=== PATIENT | female | born 1970 | race Caucasian/White ===

== ENCOUNTER 2016-11-15 17:42 | Emergency (ER) | payer MEDICARE, MEDICAID ==
--- NOTE | 2016-11-15 18:47 | EDM.PDOC ---
ED HPI Trauma - General Chief Complaint: Lower Extremity Injury/Pain Stated Complaint: RT ANKLE INJURY Time Seen by Provider: 11/15/16 17:50 Source: Reports: Patient History Limitations: Reports: No limitations - History of Present Illness INITIAL COMMENTS - FREE TEXT/NARRATIVE: c/o R ankle pain pt has several szs per week, from supervised setting, on 3 anticonvulsants, takes meds regular had seizure at home, tried to get up right away and was not completely steady on her feet, she fell and landed on her R ankle, staff member reported hearing a snap Allergies/ADRs: Allergies phenobarbital Allergy (Verified 11/15/16 17:44) he phenytoin sodium [From Dilantin] Allergy (Verified 11/15/16 17:44) Headache phenytoin sodium extended [From Dilantin] Allergy (Verified 11/15/16 17:44) Headache Home Medications: Ambulatory Orders Divalproex Sodium 250 mg PO DAILY 05/02/13 [Confirmed 11/15/16] Divalproex Sodium [Depakote] 500 mg PO BIDM 05/02/13 [Confirmed 11/15/16] Multivits w-Iron,Hematinic [Complete] 1 tab PO DAILY 05/02/13 [Confirmed ] lamoTRIgine [Lamotrigine] 100 mg PO BID 05/02/13 [Confirmed 11/15/16] levETIRAcetam [Levetiracetam] 2,000 mg PO BID 05/02/13 [Confirmed 11/15/16] Cholecalciferol (Vitamin D3) [Vitamin D] 1,000 unit PO DAILY 07/10/13 [ Confirmed 11/15/16] medroxyPROGESTERone [Depo-Provera] 150 mg IM ASDIRECTED 07/10/13 [Confirmed ] Diazepam [Diastat Rectal Gel] 1 each RC ASDIRECTED PRN 08/28/15 [Confirmed 11/15] Sertraline HCl [Sertraline HCl] 75 mg PO DAILY 08/28/15 [Confirmed 11/15/16] Past Medical History - Past Health History Medical/Surgical History: Denies Medical/Surgical History Neurological History: Reports: Seizure Other Neuro History: history of seizures Psychiatric History: Reports: Anxiety, Bipolar, Depression Social & Family History - Tobacco Use Smoking Status *Q: Never Smoker - Caffeine Use Caffeine Use: Reports: None - Alcohol Use Days Per Week of Alcohol Use: 0 - Recreational Drug Use Recreational Drug Use: No - Living Situation & Occupation Living situation: Reports: single Occupation: disabled (lives in [facility]) Review of Systems - Review of Systems Review Of Systems: See Below Constitutional: Reports: no symptoms Eyes: Reports: no symptoms Ears: Reports: no symptoms Nose: Reports: no symptoms Mouth/Throat: Reports: no symptoms Respiratory: Reports: No Symptoms Cardiovascular: Reports: no symptoms GI/Abdominal: Reports: No symptoms Genitourinary: Reports: no symptoms Musculoskeletal: Reports: joint pain Skin: Reports: no symptoms Neurological: Reports: No Symptoms Psychiatric: Reports: no symptoms Trauma Exam - Physical Exam Exam: See Below Exam Limited By: No limitations General Appearance: Reports: alert, WD/WN, no apparent distress Head: Reports: atraumatic, normocephalic Nose: Reports: normal inspection, normal mucousa, no blood Throat/Mouth: Reports: Normal voice, No airway compromise Neck: Reports: non-tender, full range of motion, normal alignment, normal inspection Respiratory Exam: Reports: no respiratory distress Cardiovascular: Reports: regular rate, rhythm Extremities: Reports: other (no ecchymosis, no visible swell at R ankle, mild tender at distal malleoli b/l on R) Skin: Reports: Normal color, Warm/dry Course - Vital Signs Last Recorded V/S: Last Vital Signs Temp 36.8 C 11/15/16 17:45 Pulse 95 11/15/16 17:45 Resp 20 11/15/16 17:45 BP 152/85 H 11/15/16 17:45 Pulse Ox 98 11/15/16 17:45 - Orders/Labs/Meds Orders: Active Orders 24 hr Category Date Time Status Ankle Min 3V Rt [CR] Stat Exams 11/15/16 17:49 Taken - Re-Assessments/Exams Free Text/Narrative Re-Assessment/Exam: 11/15/16 18:41 XR R ankle shows bimalleolar fx with minimal displacement, little to no STS on exam, short leg splint applied with stockinet, webroll, 4" fiberglass and 4" Ruperto x 2, tolerated well Departure - Departure Time of Disposition: 18:42 Disposition: Home, Self-Care 01 Condition: good Clinical Impression: Bimalleolar fracture of right ankle Instructions: Cast or Splint Care, [id number], Ankle Fracture, [id number] Referrals: Jonathan Ayers MD [Primary Care Provider] - Forms: ED Department Discharge Additional Instructions: Continue your regular meds. For pain, as needed, take acetaminophen 325 mg 2 tabs 4 times a day. Keep splint clean and dry. See Dr Appiah from orthopedics in 2 days for further evaluation. No weight bearing on right leg. Return to ED if you feel worse. Call your Physician or Return to Emergency Department if: * Your condition worsens in any way. * You develop fever greater than 100.4. * You have vomiting that does not stop with medications. * You have pain that is not controlled with medications. - My Orders Last 24 Hours: My Active Orders 11/15/16 17:49 Ankle Min 3V Rt [CR] Stat - Assessment/Plan Last 24 Hours: My Active Orders 11/15/16 17:49 Ankle Min 3V Rt [CR] Stat
[2016-11-15 18:54] VITALS: BP 135/87
--- NOTE | 2016-11-17 10:45 | CR ---
INDICATION: Had a seizure and fell on ankle. RIGHT ANKLE: Three views of the right ankle revealed a comminuted fracture of the distal shaft extending into the metaphysis of the fibula with minimal lateral offset of the distal fracture fragment - adequate position and alignment. There does appear to be some narrowing of the lateral ankle mortise , horizontal portion. There is also a transverse fracture through the medial malleolus, which is in adequate position and alignment, and a posterior malleolar fracture fragment that is a hairline fracture and does not appear to include the joint surface. IMPRESSION: Trimalleolar fracture, adequate position and alignment. There is some narrowing of the lateral ankle mortise, which may be arthritic in nature or developmental. MTDD
== END 2016-11-15 18:55 | disposition home or self-care (01) ==
LOC: FB.ED 17:42
DX: S82.841A Displaced bimalleolar fracture of right lower leg, initial encounter for closed fracture (principal); F41.9 Anxiety disorder, unspecified; F32.9 Major depressive disorder, single episode, unspecified; Z88.8 Allergy status to other drugs, medicaments and biological substances; W19.XXXA Unspecified fall, initial encounter
CPT/HCPCS: 29515; 73610-RT; 99283; 99284

== ENCOUNTER 2016-11-18 08:40 | Day surgery (SDC) | payer MEDICARE, MEDICAID ==
[~2016-11-18 08:40] MED LIST: Lactated Ringers 1,000 ML IV SCH
[2016-11-18] MEDS ORDERED: Midazolam Oral Soln 10 MG/5 ML UD Cup PO ONE ×2 (09:12)
[2016-11-18] MEDS ORDERED: ceFAZolin 2 GM in Sodium Chloride 0.9% 100 ML IV ONE (09:30)
[2016-11-18] MEDS ORDERED: Succinylcholine/Normal Saline 200 MG/10 ML Syringe IV ONE (10:00)
[2016-11-18] MEDS ORDERED: Ondansetron 4 MG/2 ML SDV IVPUSH ONE (10:00)
[2016-11-18] MEDS ORDERED: Dexamethasone 4 MG/ML 5 ML MDV IVPUSH ONE (10:00)
[2016-11-18] MEDS ORDERED: Rocuronium 50 MG/5 ML Vial IV ONE (10:00)
[2016-11-18] MEDS ORDERED: fentaNYL 100 MCG/2 ML SDV IV ONE (10:00)
[2016-11-18] MEDS ORDERED: Midazolam 1 MG/ML 2 ML SDV IV ONE (10:00)
[2016-11-18] MEDS ORDERED: Ketorolac 30 MG/ML SDV IVPUSH ONE (10:00)
[2016-11-18] MEDS ORDERED: Lactated Ringers 1,000 ML IV ONE (10:00)
[2016-11-18] MEDS ORDERED: Propofol 200 MG/20 ML SDV IV ONE (10:00)
[2016-11-18] MEDS ORDERED: Acetaminophen/HYDROcodone 325-5 MG Tab PO PRN (13:29)
[2016-11-18] MEDS ORDERED: Lactated Ringers 1,000 ML IV SCH (13:30)
[2016-11-18 14:31] VITALS: BP 160/98
--- NOTE | 2016-11-18 18:09 | OR ---
DATE OF OPERATION: 11/18/2016 SURGEON: Aleksandar Appiah MD PREOPERATIVE DIAGNOSIS: Unstable bimalleolar fracture, closed, left ankle. POSTOPERATIVE DIAGNOSIS: Unstable bimalleolar fracture, closed, left ankle. PROCEDURE PERFORMED: Open reduction and internal fixation of left ankle bi- malleolar fracture. OPERATIVE NOTE: The patient was taken to the operating room after 2 g of Ancef were given IV. She was then carefully positioned in supine position onto the operative table. General anesthetic was then administered. Tourniquet was then placed on the left thigh near the inguinal area. The left lower extremity was then elevated and tourniquet inflated to 250 mmHg pressure after sterile ChloraPrep had been performed from the inferior margin of the tourniquet to the tip of the toes. The patient had a skin incision approximately 6 inches in length over the lateral aspect of the right ankle. Skin and subcutaneous tissues were carefully dissected through and hemostasis was achieved utilizing electrocautery. The patient's fracture was brought into view and the fracture debrided with a small rongeur. Once the hematoma had been removed, the fracture was then stabilized with an 8 hole semitubular plate. Care was taken to have 2 screws distal to the fracture line and 2 proximally. Portable C-arm was brought in and showed ankle mortise to be reduced and the mortise view was also taken that showed good maintenance of the mortise. We did not use a mortise stabilizing screw because there was no motion of the anterior talofibular ligament. The lateral incision was then packed and then we made about a 3 inch incision anterior and inferior to the medial malleolus. Skin and subcutaneous tissues were carefully dissected through. The medial malleolus was identified and the periosteum was intact. With the use of a 4.0 cannulated screw, we then stabilized the fracture. In trying to put another screw across the fracture site for stabilization, I could not purchase the threads, therefore we went with a 6.5. Again, I felt it was very important to make sure this fracture healed as I was not sure the patient will be able to comply with postop recommendations and did not want a nonunion or displacement of the medial malleolus to occur. Thorough irrigation was then carried out, tourniquet deflated, and hemostasis achieved utilizing electrocautery and 0 Vicryl for the deep subcutaneous tissue, 2-0 for the superficial subcutaneous tissue, and jules were utilized for closure of the skin. Skin cleansed and dried and appropriate dressings were applied; Xeroform, 4x4s, 4-inch tubular gauze, soft roll, and then light Ruperto. The patient tolerated the procedure well. No complications were encountered. Estimated blood loss was less than 30 mL. /[id number] DINA/BEATRIZ YOUSSEF
[2016-11-18] MEDS ORDERED: Aspirin 325 MG Tab.EC PO SCH (21:00)
--- NOTE | 2016-11-19 15:10 | CR ---
INDICATION: ORIF right ankle. C-ARM FLUOROSCOPY IN O.R.: Fluoroscopy was utilized in the operating suite for open reduction and internal fixation of a bimalleolar unstable ankle fracture. Total time of usage was approximately 1.25 minutes. MTDD
== END 2016-11-18 14:20 ==
LOC: FB.SDS 08:40
PROVIDERS: ATTEND Orthopaedic Surgery
DX: S82.842A Displaced bimalleolar fracture of left lower leg, initial encounter for closed fracture (principal); F32.9 Major depressive disorder, single episode, unspecified; Z88.8 Allergy status to other drugs, medicaments and biological substances; Z79.899 Other long term (current) drug therapy; Z78.9 Other specified health status
CPT/HCPCS: 01462; 27814; 76000; A9270; J0690; J1100; J1885; J2250; J2405; J2704; J3010; J7030; J7120; C1713; C1776

== ENCOUNTER 2020-10-04 07:47 | Day surgery (SDC) | payer MEDICARE, MEDICAID ==
[~2020-10-04 07:47] MED LIST changes: -Lactated Ringers 1,000 ML IV SCH; +Sodium Chloride 0.9% 10 ML Syringe FLUSH PRN
[2020-10-04] MEDS ORDERED: Lidocaine 2% 100 MG/5 ML Syringe IVPUSH ONE (07:48)
[2020-10-04] MEDS ORDERED: Midazolam 1 MG/ML 2 ML SDV IV ONE (07:48)
[2020-10-04] MEDS ORDERED: Propofol 200 MG/20 ML SDV IV ONE (07:48)
[2020-10-04] MEDS: Lactated Ringers 1,000 ML IV SCH (08:08)
--- NOTE | 2020-10-04 08:55 | PCM.SN.2 ---
- Free Text/Narrative Note: Pt examined and chart reviewed. Their is no change to her condition. She did have issues with the prep and only took in 12 oz with one bowel movement. We will proceed with an EGD only today. We have talked to her sister about the risks of the procedure which include bleeding, infection, perforation and have received verbal permission to proceed. This was witnessed by the nursing staff.
--- NOTE | 2020-10-04 09:28 | PCM.OPNOTE ---
- General Post-Op/Procedure Note Date of Surgery/Procedure: 10/04/20 Operative Procedure(s): egd with bx Findings: gastroduodenitis Pre Op Diagnosis: abd pain nausea and vomiting with wt loss Post-Op Diagnosis: gastroduodenitis Anesthesia Technique: PARKER Primary Surgeon: Pedrito Corona Anesthesia Provider: Sirena Ferrari Pathology: stomach and duodenum Complications: None Condition: Good Free Text/Narrative:: see dictation #[id number]
[2020-10-04] MEDS: Pantoprazole 40 MG Vial IVPUSH ONE (09:42)
[2020-10-04 10:25] VITALS: BP 132/78; PULSE 77
--- NOTE | 2020-10-04 13:13 | OR ---
DATE OF OPERATION: 10/04/2020 SURGEON: Pedrito Corona MD PROCEDURE PERFORMED: EGD with cold forceps biopsy. PREOPERATIVE DIAGNOSIS: History of weight loss, epigastric abdominal pain, nausea, and vomiting. POSTOPERATIVE DIAGNOSIS: Gastric duodenitis. INDICATIONS FOR PROCEDURE: This is a 50-year-old white female who is a resident at a local senior living. She has some developmental issues as well as a history of seizures. Apparently, she had been noted by staff to have complaints of abdominal discomfort, nausea, and vomiting. She has had a poor p.o. intake as a result as well as weight loss. In addition, she has also had some diarrhea. She was initially planned to have an upper and lower endoscopy, but her p.o. prep did not go well. She presents now for an EGD. DESCRIPTION OF PROCEDURE: After an excellent IV sedation was administered, the bite block was inserted. The flexible endoscope was passed without difficulty down the patient's esophagus into the stomach. Stomach was insufflated. Scope was passed through the pylorus, second portion of the duodenum, and slowly withdrawn. The following findings were noted. Duodenum, especially in the first portion duodenitis was noted. Photos and biopsies were taken. Stomach demonstrated diffuse gastritis along the entire organ. Photos and multiple biopsies were taken and submitted in one container. GE junction measured approximately 35 cm, which appeared to be appropriate for patient of this height, and the esophagus itself was unremarkable. Stomach was deflated. Scope was removed. Patient tolerated the procedure well. Results will be sent by letter. Further workup on the basis of these results and her response to a change in medication. It should be noted that her sister who is her guardian was also informed of the results at the end of the procedure. /[id number] /MODL
== END 2020-10-04 10:00 | disposition home or self-care (01) ==
LOC: FB.SDS 07:47
PROVIDERS: ATTEND Surgery
DX: K29.80 Duodenitis without bleeding (principal); K29.90 Gastroduodenitis, unspecified, without bleeding; Z79.899 Other long term (current) drug therapy; Z88.8 Allergy status to other drugs, medicaments and biological substances
CPT/HCPCS: 00731-QZ; 88305; 88342; C9113; J2250; J2704; J7120

== ENCOUNTER 2021-03-02 12:01 | Emergency (ER) | payer MEDICARE, MEDICAID ==
[2021-03-02 12:41] VITALS: BP 119/71; PULSE 103
--- NOTE | 2021-03-02 12:53 | EDM.PDOC ---
ED HPI GENERAL MEDICAL PROBLEM - General Chief Complaint: General Stated Complaint: IRRATIC BEHAVIOR Time Seen by Provider: 03/02/21 12:08 Source of Information: Reports: Patient, Family History Limitations: Reports: No Limitations - History of Present Illness INITIAL COMMENTS - FREE TEXT/NARRATIVE: c/o dec'd alertness from [facility], weighted 204 lb 1y ago, weights 117 lb today, cause of wt loss unknown per director of [facility] who is pt pt reported to have slept okay, does not walk, transferred to w/c, drank juice and took meds for bfast but did not eat solid food had trouble remembering names of staff in mid morning and director was called, could name director at [facility], nor does so here did eat cheeseburger for lunch and was able to tell me this, however she would close her eyes and drift off to sleep with food in her mouth has had COVID vax, not had COVID illness PMH: CVA, sxs, dev delay SH: 2 sisters live in [place], last saw them over 2y ago has 3-4 szs/wk, partial complex, will jerk RUE/RLE but continue to talk, will yell "I'm okay", sometimes drops head, sometimes become withdrawn. Last szs 3d ago, last 27 seconds, not given prn meds for szs, has order for diazepam [place] prn but has not used in many months sucralfate was stopped 1m ago, saw PCP Dr Carvalho (? sp) in [facility] yesterday for routine apt to f/u being off of sucralfate (per director), no change in meds yesterday, no labs yesterday labs have been unremarkable here altho no recent labs when pt woke up today she was joking about Thursday being her bday, seemed more alert than now, director thinks her alertness has declined this morning, director called by staff at 10a to say pt was not acting herself, director conersed with pt via Zoom and agreed with staff, decied to bring pt here no f/c/d, no n/v, no pain c/o, no sob pt has initial apt with rheum on 03/07 to evaluate pt for "inflammation" altho pt has not had rheum problems in past, apparently part of work up for wt loss over past yr - Related Data Allergies Allergy/AdvReac Type Severity Reaction Status Date / Time phenobarbital Allergy he Verified 10/04/20 08:37 phenytoin sodium Allergy Headache Verified 10/04/20 08:37 [From Dilantin] phenytoin sodium extended Allergy Headache Verified 10/04/20 08:37 [From Dilantin] Home Meds: Home Meds Divalproex Sodium [Depakote] 750 mg PO BID 05/02/13 [History] Multivits w-Iron,Hematinic [Complete] 1 tab PO DAILY 05/02/13 [History] lamoTRIgine [Lamotrigine] 100 mg PO BID 05/02/13 [History] levETIRAcetam [Levetiracetam] 2,000 mg PO BID 05/02/13 [History] Cholecalciferol (Vitamin D3) [Vitamin D3] 1,000 unit PO DAILY 07/10/13 [History] Sertraline HCl 25 mg PO DAILY 08/28/15 [History] diazePAM [Diastat Rectal Gel] 1 each RC ASDIRECTED PRN 08/28/15 [History] Mirtazapine [Remeron] 15 mg PO BEDTIME 11/18/16 [History] Calcitrate 1 tab PO BIDMEALS 03/17/18 [History] L.acidoph,Paracasei, B.lactis [Probiotic] 1 each PO DAILY 03/17/18 [History] Cannabidiol (Cbd) Extract [Cannabis (Medical)] 1 cap PO BID PRN 10/03/20 [History] Ferrous Sulfate 324 mg PO BID 10/03/20 [History] Sertraline [Zoloft] 50 mg PO DAILY 10/03/20 [History] polyethylene glycoL 3350 [Gavilax] 17 gm PO DAILY 10/03/20 [History] Amoxicillin/Potassium Clav [Augmentin 500-125 Tablet] 1 each PO BID #20 tablet 03/02/21 [Rx] Fluticasone Propionate 16 gm NS ASDIRECTED #1 bottle 03/02/21 [Rx] Past Medical History - Past Health History Medical/Surgical History: Denies Medical/Surgical History HEENT History: Reports: None Cardiovascular History: Reports: None Respiratory History: Reports: None Gastrointestinal History: Reports: None Genitourinary History: Reports: None DECK SCALER History: Reports: None Musculoskeletal History: Reports: Fracture Neurological History: Reports: Seizure Other Neuro History: history of seizures Psychiatric History: Reports: Aggressive/Hostile Behaviors, Anxiety, Bipolar, Depression, Developmental Delay, Other (See Below) Other Psychiatric History: mild intellectual disability Endocrine/Metabolic History: Reports: None Hematologic History: Reports: Anemia Immunologic History: Reports: None Oncologic (Cancer) History: Reports: None Dermatologic History: Reports: None - Infectious Disease History Infectious Disease History: Reports: Other (See Below) Other Infectious Disease History: UNABLE TO OBTAIN. - Past Surgical History Head Surgeries/Procedures: Reports: None HEENT Surgical History: Reports: None Cardiovascular Surgical History: Reports: None Respiratory Surgical History: Reports: None GI Surgical History: Reports: None Female Surgical History: Reports: None Endocrine Surgical History: Reports: None Neurological Surgical History: Reports: None Oncologic Surgical History: Reports: None Social & Family History - Family History Family Medical History: No Pertinent Family History - Caffeine Use Caffeine Use: Reports: Coffee - Living Situation & Occupation Living situation: Reports: Single Occupation: Disabled ED ROS GENERAL - Review of Systems Review Of Systems: See Below Constitutional: Reports: Malaise, Decreased Appetite. Denies: Fever, Chills, Diaphoresis HEENT: Reports: No Symptoms Respiratory: Reports: No Symptoms. Denies: Cough Cardiovascular: Reports: No Symptoms. Denies: Chest Pain Endocrine: Reports: No Symptoms GI/Abdominal: Reports: No Symptoms. Denies: Abdominal Pain, Constipation, Diarrhea, Nausea, Vomiting : Reports: No Symptoms Musculoskeletal: Reports: No Symptoms Skin: Reports: No Symptoms Neurological: Reports: Other (not remembering names). Denies: Headache, Numbness, Paresthesia, Trouble Speaking, Change in Speech Psychiatric: Reports: No Symptoms Hematologic/Lymphatic: Reports: No Symptoms Immunologic: Reports: No Symptoms ED EXAM, GENERAL - Physical Exam Exam: See Below Free Text/Narrative:: wearing helmet as she always does General Appearance: Alert, Other (tells me her name, knows she is in hospital, tells me she had a hamburger for lunch, opens mouth on command, makes eye contact, talks complete sentences without dysarthria) Eye Exam: Bilateral Eye: EOMI, PERRL, Other (follows finger when asked to do so, conjugate gaze) Ears: Hearing Grossly Normal Nose: Normal Inspection Throat/Mouth: Normal Inspection, Normal Lips, Normal Oropharynx, Normal Voice, No Airway Compromise, Other (very poor dentition, multiple filled caries, calculus at base of teeth) Head: Atraumatic, Normocephalic Neck: Normal Inspection, Supple, Non-Tender, Full Range of Motion. No: Lymphadenopathy (R), Lymphadenopathy (L) Respiratory/Chest: No Respiratory Distress, Lungs Clear, Normal Breath Sounds, No Accessory Muscle Use, Chest Non-Tender Cardiovascular: Regular Rate, Rhythm, No Edema, No Murmur GI/Abdominal: Normal Bowel Sounds, Soft, Non-Tender, No Distention Back Exam: Normal Inspection, Full Range of Motion Extremities: Other (marked dec'd turgor UE c/w loss of wt, no true tenting, appears dehyrated, minimal edema of feet/ankles/pretib c/w nonambulatory status) Neurological: Alert, Other (moves all ext x 4, resists plantar flex of ankles, squeezes finger b/l altho manager fine is weak b/l, withdraws all ext symmetrically) Psychiatric: Normal Affect, Normal Mood Skin Exam: Warm, Dry, Intact, Normal Color, No Rash Lymphatic: No Adenopathy #1 Interpretation EKG Date: 03/02/21 Time: 12:02 Rhythm: NSR Rate (Beats/Min): 99 [place]: Normal P-Wave: Present QRS: Normal ST-T: Normal QT: Normal Comparison: NA - No Prior EKG EKG Interpretation Comments: baseline motion artifact, no comparison, no acute/ischemic changes, ST wnl Course - Vital Signs Last Recorded V/S: Last Vital Signs Temp 37.2 C 03/02/21 12:02 Pulse 103 H 03/02/21 12:02 Resp 20 03/02/21 12:02 BP 119/71 03/02/21 12:02 Pulse Ox 99 03/02/21 12:02 - Orders/Labs/Meds Orders: Active Orders 24 hr Category Date Time Status Chest 1V Frontal [CR] Stat Exams 03/02/21 13:15 Ordered Head wo Cont [CT] Stat Exams 03/02/21 13:15 Ordered CULTURE URINE [RM] Stat Lab 03/02/21 13:31 Ordered EKG 12 Lead [EK] Routine Ther 03/02/21 12:44 Ordered Labs: Laboratory Tests 03/02/21 03/02/21 03/02/21 Range/Units 13:00 13:05 13:05 WBC 6.1 (3.0-10.3) x10-3/uL RBC 3.53 L (3.60-5.20) x10(6)uL Hgb 9.6 L (11.4-15.5) g/dL Hct 29.1 L (34.2-48.2) % MCV 82.5 (76.7-100.5) fL MCH 27.1 (23.9-33.9) pg MCHC 32.8 (31.9-34.8) g/dL RDW 17.7 H (12.3-16.5) % Plt Count 343 (151-488) x10(3)uL MPV 6.9 L (7.1-12.4) fL Neut % (Auto) 61.2 (30.8-76.2) % Lymph % (Auto) 24.7 (18.4-52.1) % [place] % (Auto) 13.6 (4.4-15.7) % Eos % (Auto) 0.1 L (0.6-8.1) % Baso % (Auto) 0.4 (0.2-1.5) % Neut # (Auto) 3.7 (1.5-6.3) x10-3/uL Lymph # (Auto) 1.5 (1.0-4.4) x10-3/uL [place] # (Auto) 0.8 (0.3-1.0) x10-3/uL Eos # (Auto) 0.0 (0.0-0.8) x10-3/uL Baso # (Auto) 0.0 (0.0-0.1) x10-3/uL Sodium 136 (135-145) mmol/L Potassium 3.9 (3.5-5.3) mmol/L Chloride 98 L (100-110) mmol/L Carbon Dioxide 29 (21-32) mmol/L BUN 14 (7-18) mg/dL Creatinine 0.9 (0.55-1.02) mg/dL Est Cr Clr Drug Dosing 62.17 mL/min Estimated GFR (MDRD) > 60 (>60) BUN/Creatinine Ratio 15.6 (9-20) Glucose 146 H (80-116) mg/dL Calcium 9.8 (8.6-10.2) mg/dL Total Bilirubin 0.3 (0.1-1.3) mg/dL AST 12 (5-25) IU/L ALT 12 (12-36) U/L Alkaline Phosphatase 81 (56-112) IU/L Troponin I (4.0-60.3) pg/mL C-Reactive Protein (0.5-0.9) mg/dL Total Protein 7.7 (6.0-8.0) g/dL Albumin 2.5 L (3.5-5.2) g/dL Globulin 5.2 g/dL Albumin/Globulin Ratio 0.5 TSH, Ultra Sensitive (0.36-3.74) IU/mL Urine Color Yellow (YELLOW) Urine Appearance Slightly cloudy (CLEAR) Urine pH 7.0 H (5.0-6.5) Ur Specific [place] 1.010 (1.010-1.025) Urine Protein Negative (NEGATIVE) mg/dL Urine Glucose (UA) Normal (NORMAL) mg/dL Urine Ketones Negative (NEGATIVE) mg/dL Urine Occult Blood Negative (NEGATIVE) Urine Nitrite Negative (NEGATIVE) Urine Bilirubin Negative (NEGATIVE) Urine Urobilinogen Normal (NEGATIVE) mg/dL Ur Leukocyte Esterase Negative (NEGATIVE) Urine RBC 0-5 (0-5) Urine WBC 10-20 H (0-5) Ur Squamous Epith Cells Occasional (NS,R,O) Urine Bacteria Many H (NS) Urine Mucus Moderate H (NS) 03/02/21 03/02/21 Range/Units 13:05 13:05 WBC (3.0-10.3) x10-3/uL RBC (3.60-5.20) x10(6)uL Hgb (11.4-15.5) g/dL Hct (34.2-48.2) % MCV (76.7-100.5) fL MCH (23.9-33.9) pg MCHC (31.9-34.8) g/dL RDW (12.3-16.5) % Plt Count (151-488) x10(3)uL MPV (7.1-12.4) fL Neut % (Auto) (30.8-76.2) % Lymph % (Auto) (18.4-52.1) % [place] % (Auto) (4.4-15.7) % Eos % (Auto) (0.6-8.1) % Baso % (Auto) (0.2-1.5) % Neut # (Auto) (1.5-6.3) x10-3/uL Lymph # (Auto) (1.0-4.4) x10-3/uL [place] # (Auto) (0.3-1.0) x10-3/uL Eos # (Auto) (0.0-0.8) x10-3/uL Baso # (Auto) (0.0-0.1) x10-3/uL Sodium (135-145) mmol/L Potassium (3.5-5.3) mmol/L Chloride (100-110) mmol/L Carbon Dioxide (21-32) mmol/L BUN (7-18) mg/dL Creatinine (0.55-1.02) mg/dL Est Cr Clr Drug Dosing mL/min Estimated GFR (MDRD) (>60) BUN/Creatinine Ratio (9-20) Glucose (80-116) mg/dL Calcium (8.6-10.2) mg/dL Total Bilirubin (0.1-1.3) mg/dL AST (5-25) IU/L ALT (12-36) U/L Alkaline Phosphatase (56-112) IU/L Troponin I < 4.0 L (4.0-60.3) pg/mL C-Reactive Protein 10.8 H* (0.5-0.9) mg/dL Total Protein (6.0-8.0) g/dL Albumin (3.5-5.2) g/dL Globulin g/dL Albumin/Globulin Ratio TSH, Ultra Sensitive 1.46 (0.36-3.74) IU/mL Urine Color (YELLOW) Urine Appearance (CLEAR) Urine pH (5.0-6.5) Ur Specific [place] (1.010-1.025) Urine Protein (NEGATIVE) mg/dL Urine Glucose (UA) (NORMAL) mg/dL Urine Ketones (NEGATIVE) mg/dL Urine Occult Blood (NEGATIVE) Urine Nitrite (NEGATIVE) Urine Bilirubin (NEGATIVE) Urine Urobilinogen (NEGATIVE) mg/dL Ur Leukocyte Esterase (NEGATIVE) Urine RBC (0-5) Urine WBC (0-5) Ur Squamous Epith Cells (NS,R,O) Urine Bacteria (NS) Urine Mucus (NS) Meds: Medications Discontinued Medications Generic Name Dose Route Start Last Admin Trade Name Bradley PRN Reason Stop Dose Admin Ceftriaxone Sodium 1 gm 03/02/21 13:34 03/02/21 14:27 Ceftriaxone 1 Gm Vial IM 03/02/21 13:35 1 gm ONETIME ONE Administration - Re-Assessments/Exams Free Text/Narrative Re-Assessment/Exam: 03/02/21 15:19 CT head without contrast shows acute on chronic b/l maxillary sinusitis with extension into ethmoids cath u/a shows UTI, UC pending pt has had CRP 12x ULN 2m ago and 1y ago, raising question whether this is d/t chronic infections will check CRP on 03/06 to see if antibiotics have improved CRP also with ESR 130 at [facility] 1y ago PMR is a consideration altho pt has had no joint pain or central weakness mild confusion today c/w acute infection, no evidence of CVA or CV disease, given ceftriaxone here, will continue with Augmentin 500/125 mg x 10d would expect pt should do well profound wt loss from 204 lbs 1y ago to 117 lbs today may be d/t chronic infection CxR 1v was neg on prelim ED read today no u/a noted in [facility] Epic chart in past year Departure - Departure Time of Disposition: 15:12 Disposition: Home, Self-Care 01 Condition: Good Clinical Impression: Urinary tract infection, Chronic sinusitis, Elevated C-reactive protein (CRP) - Discharge Information *PRESCRIPTION DRUG MONITORING PROGRAM REVIEWED*: Not Applicable *COPY OF PRESCRIPTION DRUG MONITORING REPORT IN PATIENT ELIZABETH: Not Applicable Prescriptions: Amoxicillin/Potassium Clav [Augmentin 500-125 Tablet] 1 each PO BID #20 tablet Fluticasone Propionate 16 gm NS ASDIRECTED #1 bottle Instructions: Sinusitis, Adult, Urinary Tract Infection, Adult Referrals: Guanaco Wade [Primary Care Provider] - Forms: ED Department Discharge Additional Instructions: For sinus and bladder infection, take amoxicillin/clavulanate 500/125 mg 1 tab 2 times a day for 10 days. For nasal swelling, use fluticasone 2 sprays per nares daily for 1 week, then 1 spray per nares maintenance. Return to lab at hospital on 03/06 to recheck CRP (and see if it has improved on the above meds). See wire insulator Sangeeta Wright MD on 03/07 as scheduled. Schedule an appointment with ENT in 2 weeks to follow up sinus infection. Encourage fluids and nutrition. Sepsis Event Note (ED) - Evaluation Sepsis Screening Result: No Definite Risk - Focused Exam Vital Signs: Vital Signs Temp Pulse Resp BP Pulse Ox 03/02/21 12:02 37.2 C 103 H 20 119/71 99 - My Orders Last 24 Hours: My Active Orders 03/02/21 12:44 EKG 12 Lead [EK] Routine 03/02/21 13:15 Chest 1V Frontal [CR] Stat Head wo Cont [CT] Stat 03/02/21 13:31 CULTURE URINE [RM] Stat - Assessment/Plan Last 24 Hours: My Active Orders 03/02/21 12:44 EKG 12 Lead [EK] Routine 03/02/21 13:15 Chest 1V Frontal [CR] Stat Head wo Cont [CT] Stat 03/02/21 13:31 CULTURE URINE [RM] Stat
[2021-03-02] MEDS ORDERED: cefTRIAXone 1 GM Vial IM ONE (13:34)
--- NOTE | 2021-03-04 10:21 | CR ---
INDICATION: Weakness, not eating. CHEST ONE VIEW: AP upright portable view of the chest 03/02/21 - no comparisons. Numerous oval low-density abnormalities are noted in the humeri and there is deformity at the clavicle. 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 The heart appeared normal in size. The aorta is slightly tortuous. Overlying EKG leads are noted. Poor inspiration emphasizes markings making it difficult to exclude minimal basilar patchy bronchopneumonia especially at the right lung base. However, no consolidating pneumonia or effusion was identified. IMPRESSION: No acute process. MTDD
== END 2021-03-02 15:35 | disposition home or self-care (01) ==
LOC: FB.ED 12:01
DX: J32.9 Chronic sinusitis, unspecified (principal); N39.0 Urinary tract infection, site not specified; R79.82 Elevated C-reactive protein (CRP); R56.9 Unspecified convulsions; D64.9 Anemia, unspecified; Z88.8 Allergy status to other drugs, medicaments and biological substances; Z79.899 Other long term (current) drug therapy
CPT/HCPCS: 36415; 70450; 71045; 80053; 81001; 84443; 84484; 85025; 86140; 87086; 93005; 96372; 99285; J0696

== ENCOUNTER 2021-05-23 11:15 | Inpatient (IN) | payer MEDICARE, MEDICAID ==
--- NOTE | 2021-05-23 11:36 | EDM.PDOC ---
ED HPI GENERAL MEDICAL PROBLEM - General Stated Complaint: DEHYDRATION/MED REACTION Time Seen by Provider: 05/23/21 11:32 Source of Information: Reports: Patient, Other History Limitations: Reports: Other (Patient with severe mental retardation and is limited in the history that she can provide.) - History of Present Illness INITIAL COMMENTS - FREE TEXT/NARRATIVE: 51-year-old female with severe mental retardation and history of seizure disorder with a mood disorder as well who presents to the emergency department via private vehicle and with shelter staff secondary to profuse diarrhea, poor po intake and decreased activity and unresponsiveness. The shelter staff reports that the patient has had ongoing weight loss since May 2020 and has had multiple evaluations and some workups with most recently being seen by rheumatology on 05/14/2021 and was placed on azathioprine, Plaquenil and prednisone. Apparently over the next 24 hours the patient developed protracted vomiting and profuse diarrhea. The Plaquenil stopped and later on the azathioprine was stopped and the patient did seem to improve somewhat with taking some by mouth and her vomiting decreased and her diarrhea decreased. She was still having vomiting pretty much every morning but only 1 or 2 stools a day. Apparently since 05/21/2020 she has been having recurrent diarrhea that has been up to 7 day today. It has been watery with black specks. She initially had a stool that was black but has had no recurrence of this. Yesterday she had 7-8 stools and vomiting 1. She is very weak and withdrawn. She is usually very ta lkative and interactive and she has basically been in bed for the past 3 days. She take a little po liquids and really has not eaten any at all. There have been no fevers. She does complain of abdominal pain but she is not really able to quantitate or qualitate this. No cough. No nasal congestion or complaints of sore throat. This is really all the history that I can obtain. All of this history comes from the shelter staff member. There are no other associated signs or symptoms. There are no other modifying factors. Onset: Other (05/15/2020 and worse since 05/21/2021.) Duration: Getting Worse Location: Reports: Abdomen Quality: Reports: Other (Patient is unable.) Severity: Moderate Improves with: Reports: Other (Patient is unable.) Worsens with: Reports: Other (Palpation.) Context: Reports: Other (As above) Associated Symptoms: Reports: No Other Symptoms (Except as above) Treatments JDE DEVELOPER: Reports: Other Medication(s) (Pepto-Bismol, Imodium) - Related Data Allergies Allergy/AdvReac Type Severity Reaction Status Date / Time phenobarbital Allergy he Verified 10/04/20 08:37 phenytoin sodium Allergy Headache Verified 10/04/20 08:37 [From Dilantin] phenytoin sodium extended Allergy Headache Verified 10/04/20 08:37 [From Dilantin] Home Meds: Home Meds Multivits w-Iron,Hematinic [Complete] 1 tab PO DAILY 05/02/13 [History] levETIRAcetam [Levetiracetam] 2,000 mg PO BID 05/02/13 [History] Sertraline HCl 25 mg PO DAILY 08/28/15 [History] diazePAM [Diastat Rectal Gel] 1 each RC ASDIRECTED PRN 08/28/15 [History] Mirtazapine [Remeron] 15 mg PO BEDTIME 11/18/16 [History] L.acidoph,Paracasei, B.lactis [Probiotic] 1 each PO DAILY 03/17/18 [History] Cannabidiol (Cbd) Extract [Cannabis (Medical)] 1 cap PO BID 10/03/20 [History] Sertraline [Zoloft] 50 mg PO DAILY 10/03/20 [History] polyethylene glycoL 3350 [Gavilax] 17 gm PO DAILY 10/03/20 [History] Calcium Citrate/Vitamin D3 [[place] Calcium-Vit D 200-250] 1 tab PO BID 05/23/21 [History] Cholecalciferol (Vitamin D3) [Vitamin D3] 25 mcg PO DAILY 05/23/21 [History] Divalproex Sodium [Depakote] 500 mg PO BID 05/23/21 [History] Ferrous Sulfate 324 mg PO BID 05/23/21 [History] Fluticasone Propionate [Flonase] 1 spray NASBOTH DAILY 05/23/21 [History] Pantoprazole [ProTONIX] 40 mg PO DAILY 05/23/21 [History] lamoTRIgine [Lamotrigine] 100 mg PO BID 05/23/21 [History] predniSONE [Prednisone] 10 mg PO DAILY 05/23/21 [History] Past Medical History Musculoskeletal History: Reports: Fracture Neurological History: Reports: Seizure Other Neuro History: history of seizures Psychiatric History: Reports: Aggressive/Hostile Behaviors, Anxiety, Bipolar, Depression, Developmental Delay, Other (See Below) Other Psychiatric History: Severe mental retardation Hematologic History: Reports: Anemia - Infectious Disease History Infectious Disease History: Reports: Other (See Below) Other Infectious Disease History: UNABLE TO OBTAIN. - Past Surgical History GI Surgical History: Reports: EGD Musculoskeletal Surgical History: Reports: ORIF (Of right ankle) Social & Family History - Tobacco Use Tobacco Use Status *Q: Never Tobacco User - Caffeine Use Caffeine Use: Reports: Coffee, Soda - Alcohol Use Alcohol Use History: No - Living Situation & Occupation Living situation: Reports: Single, Other (Has been living in a shelter for 30+ years.) Occupation: Disabled ED ROS GENERAL - Review of Systems Review Of Systems: Unable To Obtain Reason Not Obtained: Severe MR and cannot provide me this information. ED EXAM, GENERAL - Physical Exam Exam: See Below Exam Limited By: No Limitations General Appearance: Alert, Moderate Distress, Thin Eye Exam: Bilateral Eye: EOMI, Normal Inspection (Sclerae are anicteric), PERRL Ears: Normal External Exam, Hearing Grossly Normal Ear Exam: Bilateral Ear: Auricle Normal Nose: Normal Inspection, Normal Mucosa, No Blood Throat/Mouth: Normal Voice, No Airway Compromise, Other (Dry mucous membranes.) Head: Atraumatic, Normocephalic Neck: Normal Inspection, Supple, Non-Tender, Full Range of Motion Respiratory/Chest: No Respiratory Distress, Lungs Clear, Normal Breath Sounds, No Accessory Muscle Use, Chest Non-Tender Cardiovascular: Normal Peripheral Pulses, No Edema, No Murmur, Tachycardia Peripheral Pulses: 2+: Radial (L), Radial (R), Dorsalis Pedis (L), Dorsalis Pedis (R) GI/Abdominal: Soft, No Distention, No Mass, Tender (Diffusely tender.), Abnormal Bowel Sounds (Somewhat increased). No: Guarding, Rigid, Rebound Back Exam: Normal Inspection, Full Range of Motion. No: CVA Tenderness (R), CVA Tenderness (L) Extremities: Normal Inspection, Normal Range of Motion, Non-Tender, No Pedal Edema, Normal Capillary Refill Neurological: Alert, Oriented, CN II-XII Intact, Normal Cognition, No Motor/Sensory Deficits Skin Exam: Warm, Dry, Intact, Normal Color, No Rash Course - Vital Signs Last Recorded V/S: Last Vital Signs Temp 37.2 C 05/23/21 11:15 Pulse 113 H 05/23/21 11:15 Resp 18 05/23/21 11:15 BP 146/106 H 05/23/21 11:15 Pulse Ox 98 05/23/21 11:15 - Orders/Labs/Meds Orders: Active Orders 24 hr Category Date Time Status Admission Status [Patient Status] [ADT] Routine ADT 05/23/21 15:44 Active Insert Urinary Catheter [OM.PC] ONETIME Care 05/23/21 12:30 Ordered CULTURE BLOOD [BC] Urgent Lab 05/23/21 16:25 Received CULTURE BLOOD [BC] Urgent Lab 05/23/21 16:25 Received Sodium Chloride 0.9% [Saline Flush] Med 05/23/21 11:40 Active 10 ml FLUSH ASDIRECTED PRN Vancomycin [Vancocin 125 MG Capsule] Med 05/23/21 17:00 Active 500 mg PO QID metroNIDAZOLE/Normal Saline [Flagyl in NS 500 MG/100 ML Med 05/23/21 17:15 Active ] 500 mg Premix Bag 1 bag IV Q8H Blood Culture x2 Reflex Set [OM.PC] Urgent Oth 05/23/21 15:50 Ordered Peripheral IV Insertion Adult [OM.PC] Routine Oth 05/23/21 11:40 Ordered EKG 12 Lead [EK] Routine Ther 05/23/21 12:20 Ordered Medication Orders Metronidazole 500 mg/ Premix 100 mls @ 100 mls/hr IV Q8H [facility] Last Admin: 05/23/21 17:07 Dose: 100 mls/hr Documented by: MO Sodium Chloride (Sodium Chloride 0.9% 10 Ml Syringe) 10 ml FLUSH ASDIRECTED PRN PRN Reason: Keep Vein Open Last Admin: 05/23/21 13:00 Dose: 10 ml Documented by: MO Vancomycin HCl (Vancomycin 125 Mg Cap) 500 mg PO QID [facility] Last Admin: 05/23/21 17:13 Dose: 500 mg Documented by: MO Labs: Laboratory Tests 05/23/21 05/23/21 05/23/21 Range/Units 12:10 12:10 12:10 WBC 48.0 H* (3.0-10.3) x10-3/uL RBC 4.43 (3.60-5.20) x10(6)uL Hgb 12.1 (11.4-15.5) g/dL Hct 37.8 (34.2-48.2) % MCV 85.3 (76.7-100.5) fL MCH 27.3 (23.9-33.9) pg MCHC 31.9 (31.9-34.8) g/dL RDW 16.5 (12.3-16.5) % Plt Count 324 (151-488) x10(3)uL MPV 7.5 (7.1-12.4) fL Add Manual Diff Yes Neutrophils % (Manual) 78 (46-82) % Band Neutrophils % 11 H (0-6) % Lymphocytes % (Manual) 6 L (13-37) % Monocytes % (Manual) 5 (4-12) % Poikilocytosis Few Tear Drop Cells Few Sodium 134 L (135-145) mmol/L Potassium 4.6 (3.5-5.3) mmol/L Chloride 98 L (100-110) mmol/L Carbon Dioxide 29 (21-32) mmol/L BUN 14 (7-18) mg/dL Creatinine 0.8 (0.55-1.02) mg/dL Est Cr Clr Drug Dosing 61.14 mL/min Estimated GFR (MDRD) > 60 (>60) BUN/Creatinine Ratio 17.5 (9-20) Glucose 117 H (80-116) mg/dL Lactic Acid (0.4-2.0) mmol/L Calcium 9.4 (8.6-10.2) mg/dL Magnesium 1.9 (1.8-2.5) mg/dL Total Bilirubin 0.5 (0.1-1.3) mg/dL AST 14 D (5-25) IU/L ALT 11 L (12-36) U/L Alkaline Phosphatase 106 (56-112) IU/L Troponin I (4.0-60.3) pg/mL C-Reactive Protein 13.7 H* (0.5-0.9) mg/dL Total Protein 6.6 (6.0-8.0) g/dL Albumin 2.5 L (3.5-5.2) g/dL Globulin 4.1 g/dL Albumin/Globulin Ratio 0.6 Urine Color (YELLOW) Urine Appearance (CLEAR) Urine pH (5.0-6.5) Ur Specific [place] (1.010-1.025) Urine Protein (NEGATIVE) mg/dL Urine Glucose (UA) (NORMAL) mg/dL Urine Ketones (NEGATIVE) mg/dL Urine Occult Blood (NEGATIVE) Urine Nitrite (NEGATIVE) Urine Bilirubin (NEGATIVE) Urine Urobilinogen (NEGATIVE) mg/dL Ur Leukocyte Esterase (NEGATIVE) Urine WBC (0-5) Ur Squamous Epith Cells (NS,R,O) Urine Bacteria (NS) SARS-CoV-2 RNA (LOREN) (NEGATIVE) 05/23/21 05/23/21 05/23/21 Range/Units 12:10 12:34 13:25 WBC (3.0-10.3) x10-3/uL RBC (3.60-5.20) x10(6)uL Hgb (11.4-15.5) g/dL Hct (34.2-48.2) % MCV (76.7-100.5) fL MCH (23.9-33.9) pg MCHC (31.9-34.8) g/dL RDW (12.3-16.5) % Plt Count (151-488) x10(3)uL MPV (7.1-12.4) fL Add Manual Diff Neutrophils % (Manual) (46-82) % Band Neutrophils % (0-6) % Lymphocytes % (Manual) (13-37) % Monocytes % (Manual) (4-12) % Poikilocytosis Tear Drop Cells Sodium (135-145) mmol/L Potassium (3.5-5.3) mmol/L Chloride (100-110) mmol/L Carbon Dioxide (21-32) mmol/L BUN (7-18) mg/dL Creatinine (0.55-1.02) mg/dL Est Cr Clr Drug Dosing mL/min Estimated GFR (MDRD) (>60) BUN/Creatinine Ratio (9-20) Glucose (80-116) mg/dL Lactic Acid (0.4-2.0) mmol/L Calcium (8.6-10.2) mg/dL Magnesium (1.8-2.5) mg/dL Total Bilirubin (0.1-1.3) mg/dL AST (5-25) IU/L ALT (12-36) U/L Alkaline Phosphatase (56-112) IU/L Troponin I < 4.0 L (4.0-60.3) pg/mL C-Reactive Protein (0.5-0.9) mg/dL Total Protein (6.0-8.0) g/dL Albumin (3.5-5.2) g/dL Globulin g/dL Albumin/Globulin Ratio Urine Color Yellow (YELLOW) Urine Appearance Clear (CLEAR) Urine pH 7.0 H (5.0-6.5) Ur Specific [place] 1.010 (1.010-1.025) Urine Protein Negative (NEGATIVE) mg/dL Urine Glucose (UA) Normal (NORMAL) mg/dL Urine Ketones Negative (NEGATIVE) mg/dL Urine Occult Blood Negative (NEGATIVE) Urine Nitrite Negative (NEGATIVE) Urine Bilirubin Negative (NEGATIVE) Urine Urobilinogen Normal (NEGATIVE) mg/dL Ur Leukocyte Esterase Negative (NEGATIVE) Urine WBC 0-5 (0-5) Ur Squamous Epith Cells Occasional (NS,R,O) Urine Bacteria Moderate H (NS) SARS-CoV-2 RNA (LOREN) Negative (NEGATIVE) 05/23/21 Range/Units 16:25 WBC (3.0-10.3) x10-3/uL RBC (3.60-5.20) x10(6)uL Hgb (11.4-15.5) g/dL Hct (34.2-48.2) % MCV (76.7-100.5) fL MCH (23.9-33.9) pg MCHC (31.9-34.8) g/dL RDW (12.3-16.5) % Plt Count (151-488) x10(3)uL MPV (7.1-12.4) fL Add Manual Diff Neutrophils % (Manual) (46-82) % Band Neutrophils % (0-6) % Lymphocytes % (Manual) (13-37) % Monocytes % (Manual) (4-12) % Poikilocytosis Tear Drop Cells Sodium (135-145) mmol/L Potassium (3.5-5.3) mmol/L Chloride (100-110) mmol/L Carbon Dioxide (21-32) mmol/L BUN (7-18) mg/dL Creatinine (0.55-1.02) mg/dL Est Cr Clr Drug Dosing mL/min Estimated GFR (MDRD) (>60) BUN/Creatinine Ratio (9-20) Glucose (80-116) mg/dL Lactic Acid 0.7 (0.4-2.0) mmol/L Calcium (8.6-10.2) mg/dL Magnesium (1.8-2.5) mg/dL Total Bilirubin (0.1-1.3) mg/dL AST (5-25) IU/L ALT (12-36) U/L Alkaline Phosphatase (56-112) IU/L Troponin I (4.0-60.3) pg/mL C-Reactive Protein (0.5-0.9) mg/dL Total Protein (6.0-8.0) g/dL Albumin (3.5-5.2) g/dL Globulin g/dL Albumin/Globulin Ratio Urine Color (YELLOW) Urine Appearance (CLEAR) Urine pH (5.0-6.5) Ur Specific [place] (1.010-1.025) Urine Protein (NEGATIVE) mg/dL Urine Glucose (UA) (NORMAL) mg/dL Urine Ketones (NEGATIVE) mg/dL Urine Occult Blood (NEGATIVE) Urine Nitrite (NEGATIVE) Urine Bilirubin (NEGATIVE) Urine Urobilinogen (NEGATIVE) mg/dL Ur Leukocyte Esterase (NEGATIVE) Urine WBC (0-5) Ur Squamous Epith Cells (NS,R,O) Urine Bacteria (NS) SARS-CoV-2 RNA (LOREN) (NEGATIVE) Meds: Medications Generic Name Dose Route Start Last Admin Trade Name Freq PRN Reason Stop Dose Admin Metronidazole 500 mg/ Premix 100 mls @ 100 mls/hr 05/23/21 17:15 05/23/21 17:07 IV 100 mls/hr Q8H [facility] Administration Sodium Chloride 10 ml 05/23/21 11:40 05/23/21 13:00 Sodium Chloride 0.9% 10 Ml Syringe FLUSH 10 ml ASDIRECTED PRN Administration Keep Vein Open Vancomycin HCl 500 mg 05/23/21 17:00 05/23/21 17:13 Vancomycin 125 Mg Cap PO 500 mg QID [facility] Administration Discontinued Medications Generic Name Dose Route Start Last Admin Trade Name Freq PRN Reason Stop Dose Admin Sodium Chloride 1,000 mls @ 999 mls/hr 05/23/21 12:19 05/23/21 13:00 Normal Saline IV 10/21/21 13:19 300 mls/hr .BOLUS ONE Administration Metronidazole 500 mg/ Premix 100 mls @ 100 mls/hr 05/23/21 16:45 IV Q8H [facility] Iopamidol 60 ml 05/23/21 14:30 05/23/21 14:50 Iopamidol 755 Mg/Ml 75 Ml Bottle IV 05/23/21 14:31 60 ml ASDIRECTED ONE Administration - Radiology Interpretation Free Text/Narrative:: CT scan of the abdomen and pelvis showed colitis of the descending colon and extending into the rectum. There was also some free fluid in the pelvis but there was no evidence of obstruction or perforation. This report was verbally conveyed to me by Dr. Childress. - Re-Assessments/Exams Free Text/Narrative Re-Assessment/Exam: 05/23/21 12:50: Blood cell count is 48,000. Hemoglobin is 12.1. Platelet count is normal. There are 78 segs and 11 bands on the differential. Sodium is 134. Potassium of 4.6. Bicarbonate is 29. BUN is 14 and creatinine 0.8. Glucose 117. LFTs are normal. CRP is 13.7. Troponin is less than 4.0. An EKG is reassuring except for sinus tachycardia and is unchanged from a previous EKG. Chest x-ray shows no acute disease. 05/23/21 15:45: The urinalysis was normal. The patient C. difficile is positive. Her pulse rate has improved. The CT scan of her abdomen and pelvis did show evidence of descending colon and rectal colitis with some free fluid but no free air and no evidence of perforation or obstruction. The patient will need admission for IV fluids, IV metronidazole and oral vancomycin. The patient's plan of care will require at least 2 midnight hospital stay and possibly longer. I have discussed the patient's case with Dr. Pichardo, hospitalist, and she has agreed to admit the patient to [facility]. 05/23/21 16:27: The laboratory staff was unable to draw blood for the blood cultures and the lactic acid that I had added. Therefore, using oral consent from the staff member from the patient's shelter, I performed a right femoral vein blood draw using a 21-gauge inch and a half needle and using the Seldinger technique with approximately 10 L of blood drawn. The patient tolerated this well and there are no apparent complications. She will be going over to the acute side of the hospital shortly. Departure - Departure Time of Disposition: 15:40 Disposition: Admitted As Inpatient 65 Condition: Fair Clinical Impression: Clostridium difficile enterocolitis, Dehydration - Discharge Information Sepsis Event Note (ED) - Focused Exam Vital Signs: Vital Signs Temp Pulse Resp BP Pulse Ox 05/23/21 11:15 37.2 C 113 H 18 146/106 H 98 - My Orders Last 24 Hours: My Active Orders 05/23/21 11:40 Sodium Chloride 0.9% [Saline Flush] 10 ml FLUSH ASDIRECTED PRN Peripheral IV Insertion Adult [OM.PC] Routine 05/23/21 12:20 EKG 12 Lead [EK] Routine 05/23/21 12:30 Insert Urinary Catheter [OM.PC] ONETIME 05/23/21 15:44 Admission Status [Patient Status] [ADT] Routine 05/23/21 15:50 Blood Culture x2 Reflex Set [OM.PC] Urgent 05/23/21 16:25 CULTURE BLOOD [BC] Urgent CULTURE BLOOD [BC] Urgent - Assessment/Plan Last 24 Hours: My Active Orders 05/23/21 11:40 Sodium Chloride 0.9% [Saline Flush] 10 ml FLUSH ASDIRECTED PRN Peripheral IV Insertion Adult [OM.PC] Routine 05/23/21 12:20 EKG 12 Lead [EK] Routine 05/23/21 12:30 Insert Urinary Catheter [OM.PC] ONETIME 05/23/21 15:44 Admission Status [Patient Status] [ADT] Routine 05/23/21 15:50 Blood Culture x2 Reflex Set [OM.PC] Urgent 05/23/21 16:25 CULTURE BLOOD [BC] Urgent CULTURE BLOOD [BC] Urgent
[2021-05-23] MEDS ORDERED: Sodium Chloride 0.9% 1,000 ML IV ONE (12:19)
[2021-05-23] MEDS: Sodium Chloride 0.9% 10 ML Syringe FLUSH PRN (13:00)
--- NOTE | 2021-05-23 14:06 | PCM.SN.2 ---
- Free Text/Narrative Note: I was called into ER to start an IV on this patient. It has taken several attempts to draw blood and start an IV. She has a 22 gauge IV with fluids running and needs larger bore for contrast. Attempted AC on left side without success. started an IV in right antecubetal with a 18 gauge needle using sterile technique, secured site and flushes easily with 10 cc's of saline. Report given to Anaid GALICIA. Time Documentation
[2021-05-23] MEDS ORDERED: Iopamidol 755 Mg/ML 75 ML Bottle IV ONE (14:30)
--- NOTE | 2021-05-23 16:10 | CT ---
CT ABDOMEN AND PELVIS WITH IV CONTRAST INDICATION: Abdominal pain, diarrhea. TECHNIQUE: Spiral 3.75 mm axial sections were obtained through the abdomen and pelvis with 60 mL Isovue 370 at 1.5 mL/sec with sagittal and coronal reconstructions 05/23/21. Due to patient motion, additional images of the liver were obtained. No comparisons. Total exam DLP was 345.25 mGy/cm. FINDINGS: Lower lung hunt and pleural spaces visualized appear normal. The heart did not appear to be enlarged. No pericardial effusion was seen. The liver appeared normal. Multiple gallstones are noted in the gallbladder with no enlargement or findings to strongly suggest acute cholecystitis. The adrenal glands were unremarkable. The kidneys were unremarkable. The spleen and pancreas appear to be unremarkable. Common bile duct appeared to be normal in caliber or at the upper limits of normal. No retroperitoneal mass was seen. Calcifications are noted in the aorta. Dextroconvex scoliosis is noted at the thoracolumbar spine. The appendix was not visualized. No evidence of bowel obstruction or free air was seen. There is noted abnormality in the colon at the splenic flexure and extending throughout the descending colon, not as prominently in the sigmoid but then again present in the rectosigmoid and rectum with thickening of the wall of the bowel and the colon in those areas and some minimal pericolonic fat stranding present. There is also noted free fluid in the pelvis of moderate amount which extends into the left retrocolic space along the descending colon. Findings most likely represent infectious colitis with secondary ascites in the pelvis and pericolic gutter on the left. No other organomegaly, mass lesions or free fluid collections are identified in the abdomen or pelvis. The urinary bladder appeared normal. No inguinal or ventral hernias were visualized. IMPRESSION: 1. Findings are compatible with fairly extensive colitis of the descending colon extending through the rectum with pericolonic inflammation and ascites in the pelvis. 2. Cholelithiasis - no definite cholecystitis. 3. Scoliosis. 4. ASD. Report was called to Dr. Flores at 1500 hours 05/23/21. [facility]
--- NOTE | 2021-05-23 16:16 | CR ---
CHEST ONE VIEW INDICATION: Abdominal pain, diarrhea. FINDINGS: An upright portable view of the chest was obtained 05/23/21 and revealed the heart to be normal in size. The aorta is somewhat tortuous with calcification in the arch. Findings are compared with 03/02/21. A definite active infiltrate or effusion was not identified. However, markings are somewhat heavy at the right lung base, raising the question of either fibrosis or minimal patchy bronchopneumonia. A similar appearance was noted on the previous study allowing for poor inspiration on the previous study. No additional - definite acute - infiltrate or effusion was identified. Overlying EKG leads are noted. IMPRESSION: 1. Heavy markings at the right lower lung field, which may be fibrotic in nature but make it difficult to exclude areas of patchy bronchopneumonia. 2. ASD aorta. 3. Mild dextroconcave scoliosis thoracic spine with dextroconvex scoliosis thoracolumbar spine. MTDD
[2021-05-23] MEDS ORDERED: metroNIDAZOLE/Normal Saline 500 MG in Premix Bag 1 BAG IV SCH (16:45)
[2021-05-23] MEDS ORDERED: Vancomycin 125 MG Cap PO SCH (16:45)
[2021-05-23] MEDS: metroNIDAZOLE/Normal Saline 500 MG in Premix Bag 1 BAG IV SCH (17:07)
[2021-05-23] MEDS: Vancomycin 125 MG Cap PO SCH ×2 (17:13→21:32)
[2021-05-24] MEDS: metroNIDAZOLE/Normal Saline 500 MG in Premix Bag 1 BAG IV SCH ×3 (01:14→17:03)
[2021-05-24] MEDS ORDERED: Promethazine 25 MG Tab PO PRN (08:12)
[2021-05-24] MEDS ORDERED: Ondansetron 4 MG/2 ML SDV IV PRN (08:12)
[2021-05-24] MEDS ORDERED: DIAZEPAM 20 MG RC PRN (08:13)
[2021-05-24] MEDS: Vancomycin 125 MG Cap PO SCH ×4 (08:37→21:28)
[2021-05-24] MEDS ORDERED: Pantoprazole 40 MG Tab.CR PO SCH (09:00)
[2021-05-24] MEDS: levETIRAcetam 500 MG Tab PO SCH ×2 (09:38→21:28)
[2021-05-24] MEDS: Ferrous Sulfate 325 MG Tab PO SCH ×2 (09:38→21:30)
[2021-05-24] MEDS: Divalproex Sodium Delayed-Release 500 MG Tab.CR PO SCH ×2 (09:38→21:29)
[2021-05-24] MEDS: Lactobacillus Rhamnosus GG (Probiotic) Cap PO SCH (09:38)
[2021-05-24] MEDS: Calcium Carbonate 500 MG Tablet PO SCH ×2 (09:39→21:30)
[2021-05-24] MEDS: Enoxaparin 40 MG/0.4 ML Syringe SUBCUT SCH (09:39)
[2021-05-24] MEDS: predniSONE 10 MG Tab PO SCH (09:39)
[2021-05-24] MEDS: lamoTRIgine 100 MG Tab PO SCH ×2 (09:39→21:29)
[2021-05-24] MEDS: Cholecalciferol (Vitamin D3) 25 MCG Tab PO SCH (09:40)
[2021-05-24] MEDS: Multivitamins with Iron/Calcium/Folic Acid/Minerals Tab PO SCH (09:40)
[2021-05-24] MEDS: Sertraline 50 MG Tab PO SCH (09:40)
[2021-05-24] MEDS: Sertraline 25 MG Tab PO SCH (09:40)
[2021-05-24] MEDS ORDERED: Calcium Carbonate 500 MG Tab.Chew PO PRN (10:01)
[2021-05-24] MEDS: Fluticasone Propionate Nasal Spray 16 GM Bottle NASBOTH SCH (10:15)
--- NOTE | 2021-05-24 15:33 | PCM.HP.2 ---
H&P History of Present Illness - General Date of Service: 05/24/21 Admit Problem/Dx: Admission Diagnosis/Problem Admission Diagnosis/Problem Clostridium difficile enterocolitis Source of Information: Provider, Other (assisted staff) History Limitations: Reports: Physical Impairment - History of Present Illness Initial Comments - Free Text/Narative: Yoli presented to ER yesterday with profuse diarrhea, decreases oral intake, activity and responsiveness since 05/21, 6-8 episodes/day. She had emesis Weds and then again yesterday. 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 The retirement staff reports that the patient has had ongoing weight loss since 2018, she was well over 200 lbs and since last year May has lost another 60 lbs. She has had multiple evaluations and some workups with most recently being seen by rheumatology on 05/14/2021 and was placed on azathioprine, Plaquenil and pr ednisone. Apparently over the next 24 hours the patient developed protracted vomiting and profuse diarrhea. The Plaquenil stopped and later on the azathioprine was stopped and the patient did seem to improve somewhat. Described as watery with specks. She normally is on regular diet, thin liquids. ay she had 7-8 stools and vomiting 1. Normally, she is talkative and interactive and she has basically been in bed for the past 4 days. No fevers, chills, cough, shortness of breath. Abdominal pain but can't state were pain is located. She has had EGD to work up the weight loss but she was not able to do bowel prep so colonoscopy was not done. She had negative lung biopsy, negative bone marrow biopsy. 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 FULL CODE. In ER: WBC 48, CRP 13.7, Lactic acid 0.7. Blood culture pending. UA negative. CXR negative. Covid negative. C. difficile positive. CT abdomen/pelvis showed extensive colitis of transverse, descending and sigmoid, rectal colon. Started on Vancomycin & Flagyl in ER along with IV fluids. - Related Data Allergies/Adverse Reactions: Allergies Allergy/AdvReac Type Severity Reaction Status Date / Time phenobarbital Allergy he Verified 10/04/20 08:37 phenytoin sodium Allergy Headache Verified 10/04/20 08:37 [From Dilantin] phenytoin sodium extended Allergy Headache Verified 10/04/20 08:37 [From Dilantin] Home Medications: Home Meds Multivits w-Iron,Hematinic [Complete] 1 tab PO DAILY 05/02/13 [History] levETIRAcetam [Levetiracetam] 2,000 mg PO BID 05/02/13 [History] Sertraline HCl 25 mg PO DAILY 08/28/15 [History] diazePAM [Diastat Rectal Gel] 1 each RC ASDIRECTED PRN 08/28/15 [History] Mirtazapine [Remeron] 15 mg PO BEDTIME 11/18/16 [History] L.acidoph,Paracasei, B.lactis [Probiotic] 1 each PO DAILY 03/17/18 [History] Cannabidiol (Cbd) Extract [Cannabis (Medical)] 1 cap PO BID 10/03/20 [History] Sertraline [Zoloft] 50 mg PO DAILY 10/03/20 [History] polyethylene glycoL 3350 [Gavilax] 17 gm PO DAILY 10/03/20 [History] Calcium Citrate/Vitamin D3 [[place] Calcium-Vit D 200-250] 1 tab PO BID 05/23/21 [History] Cholecalciferol (Vitamin D3) [Vitamin D3] 25 mcg PO DAILY 05/23/21 [History] Divalproex Sodium [Depakote] 500 mg PO BID 05/23/21 [History] Ferrous Sulfate 324 mg PO BID 05/23/21 [History] Fluticasone Propionate [Flonase] 1 spray NASBOTH DAILY 05/23/21 [History] Pantoprazole [ProTONIX] 40 mg PO DAILY 05/23/21 [History] lamoTRIgine [Lamotrigine] 100 mg PO BID 05/23/21 [History] predniSONE [Prednisone] 10 mg PO DAILY 05/23/21 [History] Past Medical History - Past Health History Medical/Surgical History: Denies Medical/Surgical History HEENT History: Reports: None Cardiovascular History: Reports: None Respiratory History: Reports: None Gastrointestinal History: Reports: None Genitourinary History: Reports: None CONFERENCE COORDINATOR History: Reports: None Musculoskeletal History: Reports: Fracture Neurological History: Reports: Seizure Other Neuro History: history of seizures Psychiatric History: Reports: Aggressive/Hostile Behaviors, Anxiety, Bipolar, Depression, Developmental Delay, Other (See Below) Other Psychiatric History: Severe mental retardation Endocrine/Metabolic History: Reports: None Hematologic History: Reports: Anemia Immunologic History: Reports: None Oncologic (Cancer) History: Reports: None Dermatologic History: Reports: None - Infectious Disease History Infectious Disease History: Reports: Other (See Below) Other Infectious Disease History: UNABLE TO OBTAIN. - Past Surgical History GI Surgical History: Reports: EGD Musculoskeletal Surgical History: Reports: ORIF (Of right ankle) Social & Family History - Family History Family Medical History: No Pertinent Family History - Tobacco Use Tobacco Use Status *Q: Never Tobacco User Second Hand Smoke Exposure: No - Caffeine Use Caffeine Use: Reports: None - Recreational Drug Use Recreational Drug Use: No - Living Situation & Occupation Living situation: Reports: Single, Other (Has been living in a retirement for 30+ years.) Occupation: Disabled H&P Review of Systems - Review of Systems: Review Of Systems: Unable To Obtain Reason Not Obtained: see HPI Exam - Exam Exam: See Below - Vital Signs Vital Signs: Last Vital Signs Temp 97.9 F 05/24/21 12:12 Pulse 94 05/24/21 12:12 Resp 18 05/24/21 12:12 BP 125/81 05/24/21 12:12 Pulse Ox 94 L 05/24/21 12:12 Weight: 102 lb 3 oz - Exam General: Alert, Cooperative. No: Mild Distress HEENT: PERRLA, EOMI, Hearing Intact, Mucosa Moist & [place] Lungs: Clear to Auscultation, Normal Respiratory Effort Cardiovascular: Regular Rate, Regular Rhythm GI/Abdominal Exam: Soft, No Distention, Guarding, Tender, Abnormal Bowel Sounds (hyperactive BS x 4. ) (Female) Exam: Deferred Rectal (Female) Exam: Deferred Extremities: No Pedal Edema Peripheral Pulses: 2+: Radial (L), Radial (R), Posterior Tibial (L), Posterior Tibial (R), Dorsalis Pedis (L), Dorsalis Pedis (R) Skin: Warm, Dry, Intact Neuro Extensive - Mental Status: Other (severe mental disabilities, does answer simple questions, cannot answer complex) - Patient Data Lab Results Last 24 hrs: Laboratory Results - last 24 hr 05/23/21 05/24/21 05/24/21 Range/Units 16:25 08:55 08:55 WBC 49.4 H* (3.0-10.3) x10-3/uL RBC 4.16 (3.60-5.20) x10(6)uL Hgb 11.1 L (11.4-15.5) g/dL Hct 35.3 (34.2-48.2) % MCV 84.9 (76.7-100.5) fL MCH 26.8 (23.9-33.9) pg MCHC 31.5 L (31.9-34.8) g/dL RDW 16.5 (12.3-16.5) % Plt Count 312 (151-488) x10(3)uL MPV 7.5 (7.1-12.4) fL Add Manual Diff Yes Neutrophils % (Manual) 80 (46-82) % Band Neutrophils % 4 (0-6) % Lymphocytes % (Manual) 12 L (13-37) % Monocytes % (Manual) 4 (4-12) % Sodium 135 (135-145) mmol/L Potassium 3.4 L D (3.5-5.3) mmol/L Chloride 99 L (100-110) mmol/L Carbon Dioxide 27 (21-32) mmol/L BUN 13 (7-18) mg/dL Creatinine 0.6 (0.55-1.02) mg/dL Est Cr Clr Drug Dosing 80.26 mL/min Estimated GFR (MDRD) > 60 (>60) BUN/Creatinine Ratio 21.7 H (9-20) Glucose 109 (80-116) mg/dL Lactic Acid 0.7 (0.4-2.0) mmol/L Calcium 8.6 (8.6-10.2) mg/dL Result Diagrams: 05/24/21 08:55 05/24/21 08:55 Chris Results Last 24 hrs: Microbiology 05/23/21 14:28 C. difficile Antigen & Toxins A,B - Final Stool / Feces Sepsis Event Note - Evaluation Sepsis Screening Result: No Definite Risk - Focused Exam Vital Signs: Vital Signs Temp Pulse Resp BP Pulse Ox 05/24/21 12:12 97.9 F 94 18 125/81 94 L 05/24/21 08:16 97.8 F 99 18 154/91 H 95 05/24/21 08:12 97.8 F 99 18 154/91 H 95 *Q Meaningful Use (ADM) - VTE *Q VTE Mechanical Contraindications *Q: At Risk for Falls - Problem List (1) Clostridium difficile enterocolitis SNOMED Code(s): 750231957, 471406210 ICD Code: A04.72 - ENTEROCOLITIS D/T CLOSTRIDIUM DIFFICILE, NOT SPCF RECUR Status: Acute Current Visit: Yes (2) Dehydration SNOMED Code(s): 37560163 ICD Code: E86.0 - DEHYDRATION Status: Acute Current Visit: Yes (3) Elevated C-reactive protein (CRP) SNOMED Code(s): 481087730750603 ICD Code: R79.82 - ELEVATED C-REACTIVE PROTEIN (CRP) Status: Acute Current Visit: No (4) Failure to thrive SNOMED Code(s): 60265081 ICD Code: UNF9666 - Status: Acute Current Visit: Yes (5) Severe mental handicap SNOMED Code(s): 25008238 ICD Code: F72 - SEVERE INTELLECTUAL DISABILITIES Status: Chronic Current Visit: Yes (6) Seizure disorder SNOMED Code(s): 489675278 ICD Code: G40.909 - EPILEPSY, UNSP, NOT INTRACTABLE, WITHOUT STATUS EPILEPTICUS Status: Chronic Current Visit: No Problem List Initiated/Reviewed/Updated: Yes Orders Last 24hrs: Active Orders 24 hr Category Date Time Status Admission Status [Patient Status] [ADT] Routine ADT 05/23/21 15:44 Active Oxygen Therapy [RC] PRN Care 05/24/21 08:12 Active Up With Assistance [RC] ASDIRECTED Care 05/24/21 08:17 Active Up to Chair [RC] ASDIRECTED Care 05/24/21 08:12 Active VTE/DVT Education [RC] Per Unit Routine Care 05/24/21 08:12 Active Vital Signs [RC] 08,12,16,20,00,04 Care 05/24/21 08:12 Active Regular Diet [DIET] Diet 05/24/21 Lunch Active BASIC METABOLIC PANEL,BMP [CHEM] Routine Lab 05/25/21 06:00 Ordered CBC WITH AUTO DIFF [HEME] Routine Lab 05/25/21 06:00 Ordered CULTURE BLOOD [BC] Urgent Lab 05/23/21 16:25 Received CULTURE BLOOD [BC] Urgent Lab 05/23/21 16:25 Received Calcium Carbonate [Oyster Shell Calcium] Med 05/24/21 09:00 Active 500 mg PO BID Calcium Carbonate [Tums] Med 05/24/21 10:01 Active 500 mg PO Q4H PRN Cholecalciferol (Vitamin D3) [Vitamin D3] Med 05/24/21 09:00 Active 25 mcg PO DAILY Divalproex Sodium [Depakote] Med 05/24/21 09:00 Active 500 mg PO BID Enoxaparin [Lovenox] Med 05/24/21 09:00 Active 40 mg SUBCUT Q24H Ferrous Sulfate Med 05/24/21 09:00 Active 325 mg PO BID Fluticasone Propionate [Flonase] Med 05/24/21 09:00 Active 0 gm NASBOTH DAILY Lactobacillus Rhamnosus GG [Culturelle] Med 05/24/21 09:00 Active 1 cap PO DAILY Mirtazapine [Remeron] Med 05/24/21 21:00 Active 15 mg PO BEDTIME Multivitamins w-Iron/Ca/FA/Min [Thera M Plus] Med 05/24/21 09:00 Active 1 tab PO DAILY Ondansetron [Zofran] Med 05/24/21 08:12 Active 4 mg IV Q4H PRN Promethazine [Phenergan] Med 05/24/21 08:12 Active 25 mg PO Q6H PRN Sertraline [Zoloft] Med 05/24/21 09:00 Active 25 mg PO DAILY Sertraline [Zoloft] Med 05/24/21 09:00 Active 50 mg PO DAILY Vancomycin [Vancocin 125 MG Capsule] Med 05/23/21 17:00 Active 500 mg PO QID lamoTRIgine Med 05/24/21 09:00 Active 100 mg PO BID levETIRAcetam [Keppra] Med 05/24/21 09:00 Active 2,000 mg PO BID metroNIDAZOLE/Normal Saline [Flagyl in NS 500 MG/100 ML Med 05/23/21 17:15 Active ] 500 mg Premix Bag 1 bag IV Q8H predniSONE Med 05/24/21 09:00 Active 10 mg PO DAILY Antiembolic Hose [OM.PC] Per Unit Routine Oth 05/24/21 08:12 Ordered Blood Culture x2 Reflex Set [OM.PC] Urgent Oth 05/23/21 15:50 Ordered Resuscitation Status Routine Resus Stat 05/24/21 08:12 Ordered Medication Orders Calcium Carbonate/Glycine (Calcium Carbonate 500 Mg Tablet) 500 mg PO BID [facility] Last Admin: 05/24/21 09:39 Dose: 500 mg Documented by: GRACE Calcium Carbonate/Glycine (Calcium Carbonate 500 Mg Tab.Chew) 500 mg PO Q4H PRN PRN Reason: HEARTBURN Cholecalciferol (Cholecalciferol (Vitamin D3) 25 Mcg Tab) 25 mcg PO DAILY [facility] Last Admin: 05/24/21 09:40 Dose: 25 mcg Documented by: GRACE Divalproex Sodium (Divalproex Sodium Delayed-Release 500 Mg Tab.Cr) 500 mg PO BID [facility] Last Admin: 05/24/21 09:38 Dose: 500 mg Documented by: GRACE Enoxaparin Sodium (Enoxaparin 40 Mg/0.4 Ml Syringe) 40 mg SUBCUT Q24H [facility] Last Admin: 05/24/21 09:39 Dose: 40 mg Documented by: GRACE Ferrous Sulfate (Ferrous Sulfate 325 Mg Tab) 325 mg PO BID [facility] Last Admin: 05/24/21 09:38 Dose: 325 mg Documented by: GRACE Fluticasone Propionate (Fluticasone Propionate Nasal [place] 16 Gm Bottle) 0 gm NASBOTH DAILY [facility] Last Admin: 05/24/21 10:15 Dose: 1 spray Documented by: GRACE Metronidazole 500 mg/ Premix 100 mls @ 100 mls/hr IV Q8H [facility] Last Admin: 05/24/21 09:41 Dose: 100 mls/hr Documented by: Infusion: 05/24/21 02:14 Dose: 100 mls/hr Documented by: Admin: 05/24/21 01:14 Dose: 100 mls/hr Documented by: Infusion: 05/23/21 18:07 Dose: 100 mls/hr Documented by: Admin: 05/23/21 17:07 Dose: 100 mls/hr Documented by: MO Lactobacillus Rhamnosus (Lactobacillus Rhamnosus Gg (Probiotic) Cap) 1 cap PO DAILY [facility] Last Admin: 05/24/21 09:38 Dose: 1 cap Documented by: GRACE Lamotrigine (Lamotrigine 100 Mg Tab) 100 mg PO BID [facility] Last Admin: 05/24/21 09:39 Dose: 100 mg Documented by: GRACE Levetiracetam (Levetiracetam 500 Mg Tab) 2,000 mg PO BID [facility] Last Admin: 05/24/21 09:38 Dose: 2,000 mg Documented by: GRACE Mirtazapine (Mirtazapine 15 Mg Tab) 15 mg PO BEDTIME [facility] Multivitamins/Minerals (Multivitamins With Iron/Calcium/Folic Acid/Minerals Tab) 1 tab PO DAILY [facility] Last Admin: 05/24/21 09:40 Dose: 1 tab Documented by: GRACE Ondansetron HCl (Ondansetron 4 Mg/2 Ml Sdv) 4 mg IV Q4H PRN PRN Reason: Nausea/Vomiting Prednisone (Prednisone 10 Mg Tab) 10 mg PO DAILY [facility] Last Admin: 05/24/21 09:39 Dose: 10 mg Documented by: GRACE Promethazine HCl (Promethazine 25 Mg Tab) 25 mg PO Q6H PRN PRN Reason: nausea, able to take PO Sertraline HCl (Sertraline 50 Mg Tab) 50 mg PO DAILY [facility] Last Admin: 05/24/21 09:40 Dose: 50 mg Documented by: GRACE Sertraline HCl (Sertraline 25 Mg Tab) 25 mg PO DAILY [facility] Last Admin: 05/24/21 09:40 Dose: 25 mg Documented by: GRACE Sodium Chloride (Sodium Chloride 0.9% 10 Ml Syringe) 10 ml FLUSH ASDIRECTED PRN PRN Reason: Keep Vein Open Last Admin: 05/23/21 13:00 Dose: 10 ml Documented by: MO Vancomycin HCl (Vancomycin 125 Mg Cap) 500 mg PO QID [facility] Last Admin: 05/24/21 14:00 Dose: 500 mg Documented by: Admin: 05/24/21 08:37 Dose: 500 mg Documented by: Admin: 05/23/21 21:32 Dose: 500 mg Documented by: Admin: 05/23/21 17:13 Dose: 500 mg Documented by: MO Assessment/Plan Comment:: 1. Admit for inpatient treatment of C. difficile colitis, dehydration, failure to thrive in adult. 2. C. difficile colitis, severe: Vancomycin 500 mg po qid, Metronidazole 500 mg IV q8h. Isolation. Normal diet at retirement is regular diet, thin liquids, retirement staff helping at meals. Saline lock. She is drinking so will watch and do IVF is po intake inadequate. 3. Dehydration: improved. Cr 0.8. Saline locked. 4. Diet: soft diet, thin liquid. Lactose diet. 5. Activity: up with assistance(normally 2 person assist). 6. DVT prophylaxis: Lovenox 40 mg sq daily. 7. CODE STATUS: FULL. 8. Discharge planning: improvement of diarrhea, and oral intake, WBC and once more stable switch Metronidazole to oral. Anticipate 72-96 hours, adjust treatments as necessary. - Mortality Measure Prognosis:: Good
[2021-05-24] MEDS: Mirtazapine 15 MG Tab PO SCH (21:30)
[2021-05-25] MEDS: metroNIDAZOLE/Normal Saline 500 MG in Premix Bag 1 BAG IV SCH ×3 (00:52→16:54)
[2021-05-25] MEDS: Enoxaparin 40 MG/0.4 ML Syringe SUBCUT SCH (08:40)
[2021-05-25] MEDS: Fluticasone Propionate Nasal Spray 16 GM Bottle NASBOTH SCH (08:44)
[2021-05-25] MEDS: Divalproex Sodium Delayed-Release 500 MG Tab.CR PO SCH ×2 (08:46→20:12)
[2021-05-25] MEDS: levETIRAcetam 500 MG Tab PO SCH ×2 (08:46→20:12)
[2021-05-25] MEDS: Ferrous Sulfate 325 MG Tab PO SCH ×2 (08:46→20:14)
[2021-05-25] MEDS: lamoTRIgine 100 MG Tab PO SCH ×2 (08:47→20:13)
[2021-05-25] MEDS: Calcium Carbonate 500 MG Tablet PO SCH ×2 (08:47→20:14)
[2021-05-25] MEDS: predniSONE 10 MG Tab PO SCH (08:48)
[2021-05-25] MEDS: Multivitamins with Iron/Calcium/Folic Acid/Minerals Tab PO SCH (08:48)
[2021-05-25] MEDS: Vancomycin 125 MG Cap PO SCH ×4 (08:48→20:12)
[2021-05-25] MEDS: Cholecalciferol (Vitamin D3) 25 MCG Tab PO SCH (08:49)
[2021-05-25] MEDS: Sertraline 50 MG Tab PO SCH (08:49)
[2021-05-25] MEDS: Sertraline 25 MG Tab PO SCH (08:50)
[2021-05-25] MEDS ORDERED: NS + KCl 20mEq/L 1,000 ML IV SCH (09:30)
[2021-05-25] MEDS: Lactobacillus Rhamnosus GG (Probiotic) Cap PO SCH (09:30)
--- NOTE | 2021-05-25 16:54 | PCM.PN ---
- General Info Date of Service: 05/25/21 Subjective Update: She states her belly still hurts but stools have decreased in frequency. Discontinued pantoprazole as can have diarrhea also as side effect and staff reported that she usually had loose stool after she took med at home. shelter staff will come daily at lunch to help with her feeding. No fevers. - Patient Data Vitals - Most Recent: Last Vital Signs Temp 97.3 F 05/25/21 12:00 Pulse 92 05/25/21 12:00 Resp 18 05/25/21 12:00 BP 146/91 H 05/25/21 12:00 Pulse Ox 95 05/25/21 12:00 Weight - Most Recent: 102 lb 3 oz I&O - Last 24 Hours: Intake & Output 05/25/21 05/25/21 05/25/21 06:59 14:59 22:59 Intake Total 120 Balance 120 Lab Results Last 24 Hours: Laboratory Results - last 24 hr 05/25/21 05/25/21 05/25/21 Range/Units 06:10 07:00 07:10 WBC 36.3 H* (3.0-10.3) x10-3/uL RBC 4.37 (3.60-5.20) x10(6)uL Hgb 11.8 (11.4-15.5) g/dL Hct 37.6 (34.2-48.2) % MCV 86.1 (76.7-100.5) fL MCH 27.0 (23.9-33.9) pg MCHC 31.3 L (31.9-34.8) g/dL RDW 16.8 H (12.3-16.5) % Plt Count 292 (151-488) x10(3)uL MPV 8.1 (7.1-12.4) fL Add Manual Diff Yes Neutrophils % (Manual) 68 (46-82) % Band Neutrophils % 6 (0-6) % Lymphocytes % (Manual) 19 (13-37) % Monocytes % (Manual) 6 (4-12) % Metamyelocytes % 1 H (0-0) % Sodium 137 (135-145) mmol/L Potassium 3.1 L (3.5-5.3) mmol/L Chloride 101 (100-110) mmol/L Carbon Dioxide 29 (21-32) mmol/L BUN 12 (7-18) mg/dL Creatinine 0.7 (0.55-1.02) mg/dL Est Cr Clr Drug Dosing 68.79 mL/min Estimated GFR (MDRD) > 60 (>60) BUN/Creatinine Ratio 17.1 (9-20) Glucose 98 (80-116) mg/dL Calcium 8.3 L (8.6-10.2) mg/dL Magnesium 1.6 L (1.8-2.5) mg/dL Chris Results Last 24 Hours: Microbiology 05/23/21 16:25 Aerobic Blood Culture - Preliminary Blood - Venous - Lab Draw NO GROWTH AFTER 2 DAYS Anaerobic Blood Culture - Preliminary NO GROWTH AFTER 2 DAYS 05/23/21 16:25 Aerobic Blood Culture - Preliminary Blood - Venous NO GROWTH AFTER 2 DAYS Anaerobic Blood Culture - Preliminary NO GROWTH AFTER 2 DAYS Med Orders - Current: Current Medications Calcium Carbonate/Glycine (Calcium Carbonate 500 Mg Tablet) 500 mg PO BID [facility] Last Admin: 05/25/21 08:47 Dose: 500 mg Documented by: Calcium Carbonate/Glycine (Calcium Carbonate 500 Mg Tab.Chew) 500 mg PO Q4H PRN PRN Reason: HEARTBURN Last Admin: 05/25/21 11:15 Dose: 500 mg Documented by: Cholecalciferol (Cholecalciferol (Vitamin D3) 25 Mcg Tab) 25 mcg PO DAILY [facility] Last Admin: 05/25/21 08:49 Dose: 25 mcg Documented by: Divalproex Sodium (Divalproex Sodium Delayed-Release 500 Mg Tab.Cr) 500 mg PO BID [facility] Last Admin: 05/25/21 08:46 Dose: 500 mg Documented by: Enoxaparin Sodium (Enoxaparin 40 Mg/0.4 Ml Syringe) 40 mg SUBCUT Q24H [facility] Last Admin: 05/25/21 08:40 Dose: 40 mg Documented by: Ferrous Sulfate (Ferrous Sulfate 325 Mg Tab) 325 mg PO BID [facility] Last Admin: 05/25/21 08:46 Dose: 325 mg Documented by: Fluticasone Propionate (Fluticasone Propionate Nasal [place] 16 Gm Bottle) 0 gm NASBOTH DAILY [facility] Last Admin: 05/25/21 08:44 Dose: 1 spray Documented by: Metronidazole 500 mg/ Premix 100 mls @ 100 mls/hr IV Q8H [facility] Last Admin: 05/25/21 08:43 Dose: 100 mls/hr Documented by: Potassium Chloride/Sodium Chloride (Normal Saline With 20 Meq Kcl) 1,000 mls @ 100 mls/hr IV ASDIRECTED [facility] Stop: 05/25/21 19:29 Last Admin: 05/25/21 13:31 Dose: 100 mls/hr Documented by: Lactobacillus Rhamnosus (Lactobacillus Rhamnosus Gg (Probiotic) Cap) 1 cap PO DAILY [facility] Last Admin: 05/25/21 09:30 Dose: 1 cap Documented by: Lamotrigine (Lamotrigine 100 Mg Tab) 100 mg PO BID [facility] Last Admin: 05/25/21 08:47 Dose: 100 mg Documented by: Levetiracetam (Levetiracetam 500 Mg Tab) 2,000 mg PO BID [facility] Last Admin: 05/25/21 08:46 Dose: 2,000 mg Documented by: Magnesium Oxide (Magnesium Oxide 400 Mg Tab) 400 mg PO BEDTIME [facility] Mirtazapine (Mirtazapine 15 Mg Tab) 15 mg PO BEDTIME [facility] Last Admin: 05/24/21 21:30 Dose: 15 mg Documented by: Multivitamins/Minerals (Multivitamins With Iron/Calcium/Folic Acid/Minerals Tab) 1 tab PO DAILY [facility] Last Admin: 05/25/21 08:48 Dose: 1 tab Documented by: Ondansetron HCl (Ondansetron 4 Mg/2 Ml Sdv) 4 mg IV Q4H PRN PRN Reason: Nausea/Vomiting Prednisone (Prednisone 10 Mg Tab) 10 mg PO DAILY [facility] Last Admin: 05/25/21 08:48 Dose: 10 mg Documented by: Promethazine HCl (Promethazine 25 Mg Tab) 25 mg PO Q6H PRN PRN Reason: nausea, able to take PO Sertraline HCl (Sertraline 50 Mg Tab) 50 mg PO DAILY [facility] Last Admin: 05/25/21 08:49 Dose: 50 mg Documented by: Sertraline HCl (Sertraline 25 Mg Tab) 25 mg PO DAILY [facility] Last Admin: 05/25/21 08:50 Dose: 25 mg Documented by: Sodium Chloride (Sodium Chloride 0.9% 10 Ml Syringe) 10 ml FLUSH ASDIRECTED PRN PRN Reason: Keep Vein Open Last Admin: 05/23/21 13:00 Dose: 10 ml Documented by: Vancomycin HCl (Vancomycin 125 Mg Cap) 500 mg PO QID [facility] Last Admin: 05/25/21 13:00 Dose: 500 mg Documented by: Discontinued Medications Sodium Chloride (Normal Saline) 1,000 mls @ 999 mls/hr IV .BOLUS ONE Stop: 05/23/21 13:19 Last Admin: 05/23/21 13:00 Dose: 300 mls/hr Documented by: Metronidazole 500 mg/ Premix 100 mls @ 100 mls/hr IV Q8H [facility] Last Admin: 05/23/21 19:05 Dose: Not Given Documented by: Iopamidol (Iopamidol 755 Mg/Ml 75 Ml Bottle) 60 ml IV ASDIRECTED ONE Stop: 05/23/21 14:31 Last Admin: 05/23/21 14:50 Dose: 60 ml Documented by: Non-Formulary Medication (Diazepam [Diastat Rectal Gel]) 1 each RC ASDIRECTED PRN PRN Reason: Seizures Pantoprazole Sodium (Pantoprazole 40 Mg Tab.Cr) 40 mg PO DAILY [facility] Last Admin: 05/24/21 09:40 Dose: 40 mg Documented by: - Exam General: Alert, Oriented, Cooperative, No Acute Distress Lungs: Clear to Auscultation, Normal Respiratory Effort Cardiovascular: Regular Rate, Regular Rhythm GI/Abdominal Exam: Normal Bowel Sounds, Soft, No Distention, Guarding, Tender (diffuse) - Patient Data Lab Results Last 24 hrs: Laboratory Results - last 24 hr 05/25/21 05/25/21 05/25/21 Range/Units 06:10 07:00 07:10 WBC 36.3 H* (3.0-10.3) x10-3/uL RBC 4.37 (3.60-5.20) x10(6)uL Hgb 11.8 (11.4-15.5) g/dL Hct 37.6 (34.2-48.2) % MCV 86.1 (76.7-100.5) fL MCH 27.0 (23.9-33.9) pg MCHC 31.3 L (31.9-34.8) g/dL RDW 16.8 H (12.3-16.5) % Plt Count 292 (151-488) x10(3)uL MPV 8.1 (7.1-12.4) fL Add Manual Diff Yes Neutrophils % (Manual) 68 (46-82) % Band Neutrophils % 6 (0-6) % Lymphocytes % (Manual) 19 (13-37) % Monocytes % (Manual) 6 (4-12) % Metamyelocytes % 1 H (0-0) % Sodium 137 (135-145) mmol/L Potassium 3.1 L (3.5-5.3) mmol/L Chloride 101 (100-110) mmol/L Carbon Dioxide 29 (21-32) mmol/L BUN 12 (7-18) mg/dL Creatinine 0.7 (0.55-1.02) mg/dL Est Cr Clr Drug Dosing 68.79 mL/min Estimated GFR (MDRD) > 60 (>60) BUN/Creatinine Ratio 17.1 (9-20) Glucose 98 (80-116) mg/dL Calcium 8.3 L (8.6-10.2) mg/dL Magnesium 1.6 L (1.8-2.5) mg/dL Result Diagrams: 05/25/21 06:10 05/25/21 07:00 Chris Results Last 24 hrs: Microbiology 05/23/21 16:25 Aerobic Blood Culture - Preliminary Blood - Venous - Lab Draw NO GROWTH AFTER 2 DAYS Anaerobic Blood Culture - Preliminary NO GROWTH AFTER 2 DAYS 05/23/21 16:25 Aerobic Blood Culture - Preliminary Blood - Venous NO GROWTH AFTER 2 DAYS Anaerobic Blood Culture - Preliminary NO GROWTH AFTER 2 DAYS Sepsis Event Note - Evaluation Sepsis Screening Result: No Definite Risk - Focused Exam Vital Signs: Vital Signs Temp Pulse Resp BP Pulse Ox 05/25/21 12:00 97.3 F 92 18 146/91 H 95 05/25/21 08:00 97.4 F 94 18 130/77 95 - Problem List & Annotations (1) Clostridium difficile enterocolitis SNOMED Code(s): 991084566, 642153763 Code(s): A04.72 - ENTEROCOLITIS D/T CLOSTRIDIUM DIFFICILE, NOT SPCF RECUR Status: Acute Current Visit: Yes (2) Dehydration SNOMED Code(s): 11200047 Code(s): E86.0 - DEHYDRATION Status: Acute Current Visit: Yes (3) Elevated C-reactive protein (CRP) SNOMED Code(s): 797454354536844 Code(s): R79.82 - ELEVATED C-REACTIVE PROTEIN (CRP) Status: Acute Current Visit: No (4) Failure to thrive SNOMED Code(s): 26640850 Code(s): IFQ8896 - Status: Acute Current Visit: Yes (5) Severe mental handicap SNOMED Code(s): 16142780 Code(s): F72 - SEVERE INTELLECTUAL DISABILITIES Status: Chronic Current Visit: Yes (6) Seizure disorder SNOMED Code(s): 510805494 Code(s): G40.909 - EPILEPSY, UNSP, NOT INTRACTABLE, WITHOUT STATUS EPILEPTICUS Status: Chronic Current Visit: No (7) Hypomagnesemia SNOMED Code(s): 709120504 Code(s): E83.42 - HYPOMAGNESEMIA Status: Acute Current Visit: Yes (8) Hypokalemia SNOMED Code(s): 54618687 Code(s): E87.6 - HYPOKALEMIA Status: Acute Current Visit: Yes - Problem List Review Problem List Initiated/Reviewed/Updated: Yes - My Orders Last 24 Hours: My Active Orders 05/24/21 Dinner Soft Diet [DIET] 05/24/21 21:00 Mirtazapine [Remeron] 15 mg PO BEDTIME 05/25/21 09:30 NS + KCl 20mEq/L [Normal Saline with 20 mEq KCl] 1,000 ml IV ASDIRECTED 05/25/21 21:00 Magnesium Oxide 400 mg PO BEDTIME 05/26/21 06:00 BASIC METABOLIC PANEL,BMP [CHEM] Routine CBC WITH AUTO DIFF [HEME] Routine MAGNESIUM [CHEM] Routine - Plan Plan:: 1. C. difficile colitis, severe: Vancomycin 500 mg po qid, Metronidazole 500 mg IV q8h, day 2 Isolation. Normal diet at [facility] is regular diet, thin liquids, [facility] staff helping at lunch. 2. Hypokalemia/hypomagnesemia: 3.1, 1.6. NS with KCL 20 mEQ 100 ml/hr, 1 bag. Magnesium 400 mg at bedtime. Recheck labs tomorrow. 3. Discharge planning: improvement of diarrhea, and oral intake, WBC trending down and once more stable switch Metronidazole to oral. Anticipate 72-96 hours, adjust treatments as necessary.
[2021-05-25] MEDS: Mirtazapine 15 MG Tab PO SCH (20:13)
[2021-05-25] MEDS: Magnesium Oxide 400 MG Tab PO SCH (20:30)
[2021-05-26] MEDS: metroNIDAZOLE/Normal Saline 500 MG in Premix Bag 1 BAG IV SCH ×3 (01:28→17:01)
[2021-05-26] MEDS: Enoxaparin 40 MG/0.4 ML Syringe SUBCUT SCH (09:07)
[2021-05-26] MEDS: Vancomycin 125 MG Cap PO SCH ×4 (09:07→21:30)
[2021-05-26] MEDS: Fluticasone Propionate Nasal Spray 16 GM Bottle NASBOTH SCH (09:07)
[2021-05-26] MEDS: levETIRAcetam 500 MG Tab PO SCH ×2 (09:08→21:30)
[2021-05-26] MEDS: Divalproex Sodium Delayed-Release 500 MG Tab.CR PO SCH ×2 (09:08→21:30)
[2021-05-26] MEDS: lamoTRIgine 100 MG Tab PO SCH ×2 (09:08→21:30)
[2021-05-26] MEDS: Cholecalciferol (Vitamin D3) 25 MCG Tab PO SCH (09:08)
[2021-05-26] MEDS: Lactobacillus Rhamnosus GG (Probiotic) Cap PO SCH (09:09)
[2021-05-26] MEDS: Ferrous Sulfate 325 MG Tab PO SCH ×2 (09:09→21:30)
[2021-05-26] MEDS: predniSONE 10 MG Tab PO SCH (09:09)
[2021-05-26] MEDS: Multivitamins with Iron/Calcium/Folic Acid/Minerals Tab PO SCH (09:09)
[2021-05-26] MEDS: Calcium Carbonate 500 MG Tablet PO SCH ×2 (09:09→21:31)
[2021-05-26] MEDS: Sertraline 25 MG Tab PO SCH (09:10)
[2021-05-26] MEDS: Sertraline 50 MG Tab PO SCH (09:10)
[2021-05-26] MEDS: Potassium Chloride 10 MEQ Tab.ER PO SCH ×2 (13:48→21:36)
--- NOTE | 2021-05-26 13:52 | PCM.PN ---
- General Info Date of Service: 05/26/21 Subjective Update: Her belly feels better today, doesn't know if she had diarrhea. Tired this morning. She is excited about tacos for lunch today. [facility] staff stated she ate taco and enchilada and chips/salsa for lunch. Asking for sprite. They ordered chicken strips & potato for supper and they are bringing cheeseburger for lunch tomorrow. She had 5 diarrhea stools yesterday and 5 so far today. - Patient Data Vitals - Most Recent: Last Vital Signs Temp 97.5 F 05/26/21 08:00 Pulse 84 05/26/21 12:00 Resp 18 05/26/21 12:00 BP 147/94 H 05/26/21 08:00 Pulse Ox 98 05/26/21 12:00 Weight - Most Recent: 102 lb 3 oz I&O - Last 24 Hours: Intake & Output 05/25/21 05/26/21 05/26/21 22:59 06:59 14:59 Intake Total 240 471 300 Balance 240 471 300 Lab Results Last 24 Hours: Laboratory Results - last 24 hr 05/26/21 05/26/21 Range/Units 06:20 06:20 WBC 21.2 H (3.0-10.3) x10-3/uL RBC 3.96 (3.60-5.20) x10(6)uL Hgb 10.8 L (11.4-15.5) g/dL Hct 34.4 (34.2-48.2) % MCV 86.9 (76.7-100.5) fL MCH 27.4 (23.9-33.9) pg MCHC 31.6 L (31.9-34.8) g/dL RDW 16.7 H (12.3-16.5) % Plt Count 324 (151-488) x10(3)uL MPV 7.5 (7.1-12.4) fL Add Manual Diff Yes Neutrophils % (Manual) 69 (46-82) % Lymphocytes % (Manual) 27 (13-37) % Monocytes % (Manual) 4 (4-12) % Sodium 139 (135-145) mmol/L Potassium 3.1 L (3.5-5.3) mmol/L Chloride 105 (100-110) mmol/L Carbon Dioxide 26 (21-32) mmol/L BUN 9 (7-18) mg/dL Creatinine 0.6 (0.55-1.02) mg/dL Est Cr Clr Drug Dosing 80.26 mL/min Estimated GFR (MDRD) > 60 (>60) BUN/Creatinine Ratio 15.0 (9-20) Glucose 97 (80-116) mg/dL Calcium 8.0 L (8.6-10.2) mg/dL Magnesium 1.8 (1.8-2.5) mg/dL Chris Results Last 24 Hours: Microbiology 05/23/21 16:25 Aerobic Blood Culture - Preliminary Blood - Venous - Lab Draw NO GROWTH AFTER 2 DAYS Anaerobic Blood Culture - Preliminary NO GROWTH AFTER 2 DAYS 05/23/21 16:25 Aerobic Blood Culture - Preliminary Blood - Venous NO GROWTH AFTER 2 DAYS Anaerobic Blood Culture - Preliminary NO GROWTH AFTER 2 DAYS Med Orders - Current: Current Medications Calcium Carbonate/Glycine (Calcium Carbonate 500 Mg Tablet) 500 mg PO BID [facility] Last Admin: 05/26/21 09:09 Dose: 500 mg Documented by: Calcium Carbonate/Glycine (Calcium Carbonate 500 Mg Tab.Chew) 500 mg PO Q4H PRN PRN Reason: HEARTBURN Last Admin: 05/25/21 11:15 Dose: 500 mg Documented by: Cholecalciferol (Cholecalciferol (Vitamin D3) 25 Mcg Tab) 25 mcg PO DAILY [facility] Last Admin: 05/26/21 09:08 Dose: 25 mcg Documented by: Divalproex Sodium (Divalproex Sodium Delayed-Release 500 Mg Tab.Cr) 500 mg PO BID [facility] Last Admin: 05/26/21 09:08 Dose: 500 mg Documented by: Enoxaparin Sodium (Enoxaparin 40 Mg/0.4 Ml Syringe) 40 mg SUBCUT Q24H [facility] Last Admin: 05/26/21 09:07 Dose: 40 mg Documented by: Ferrous Sulfate (Ferrous Sulfate 325 Mg Tab) 325 mg PO BID [facility] Last Admin: 05/26/21 09:09 Dose: 325 mg Documented by: Fluticasone Propionate (Fluticasone Propionate Nasal [place] 16 Gm Bottle) 0 gm NASBOTH DAILY [facility] Last Admin: 05/26/21 09:07 Dose: 1 spray Documented by: Metronidazole 500 mg/ Premix 100 mls @ 100 mls/hr IV Q8H [facility] Last Admin: 05/26/21 08:30 Dose: 100 mls/hr Documented by: Lactobacillus Rhamnosus (Lactobacillus Rhamnosus Gg (Probiotic) Cap) 1 cap PO DAILY [facility] Last Admin: 05/26/21 09:09 Dose: 1 cap Documented by: Lamotrigine (Lamotrigine 100 Mg Tab) 100 mg PO BID [facility] Last Admin: 05/26/21 09:08 Dose: 100 mg Documented by: Levetiracetam (Levetiracetam 500 Mg Tab) 2,000 mg PO BID [facility] Last Admin: 05/26/21 09:08 Dose: 2,000 mg Documented by: Magnesium Oxide (Magnesium Oxide 400 Mg Tab) 400 mg PO BEDTIME [facility] Last Admin: 05/25/21 20:30 Dose: 400 mg Documented by: Mirtazapine (Mirtazapine 15 Mg Tab) 15 mg PO BEDTIME [facility] Last Admin: 05/25/21 20:13 Dose: 15 mg Documented by: Multivitamins/Minerals (Multivitamins With Iron/Calcium/Folic Acid/Minerals Tab) 1 tab PO DAILY [facility] Last Admin: 05/26/21 09:09 Dose: 1 tab Documented by: Ondansetron HCl (Ondansetron 4 Mg/2 Ml Sdv) 4 mg IV Q4H PRN PRN Reason: Nausea/Vomiting Potassium Chloride (Potassium Chloride 10 Meq Tab.Er) 10 meq PO TID [facility] Prednisone (Prednisone 10 Mg Tab) 10 mg PO DAILY [facility] Last Admin: 05/26/21 09:09 Dose: 10 mg Documented by: Sertraline HCl (Sertraline 50 Mg Tab) 50 mg PO DAILY [facility] Last Admin: 05/26/21 09:10 Dose: 50 mg Documented by: Sertraline HCl (Sertraline 25 Mg Tab) 25 mg PO DAILY [facility] Last Admin: 05/26/21 09:10 Dose: 25 mg Documented by: Sodium Chloride (Sodium Chloride 0.9% 10 Ml Syringe) 10 ml FLUSH ASDIRECTED PRN PRN Reason: Keep Vein Open Last Admin: 05/23/21 13:00 Dose: 10 ml Documented by: Vancomycin HCl (Vancomycin 125 Mg Cap) 500 mg PO QID [facility] Last Admin: 05/26/21 09:07 Dose: 500 mg Documented by: Discontinued Medications Sodium Chloride (Normal Saline) 1,000 mls @ 999 mls/hr IV .BOLUS ONE Stop: 05/23/21 13:19 Last Admin: 05/23/21 13:00 Dose: 300 mls/hr Documented by: Metronidazole 500 mg/ Premix 100 mls @ 100 mls/hr IV Q8H [facility] Last Admin: 05/23/21 19:05 Dose: Not Given Documented by: Potassium Chloride/Sodium Chloride (Normal Saline With 20 Meq Kcl) 1,000 mls @ 100 mls/hr IV ASDIRECTED [facility] Stop: 05/25/21 19:29 Last Admin: 05/25/21 13:31 Dose: 100 mls/hr Documented by: Iopamidol (Iopamidol 755 Mg/Ml 75 Ml Bottle) 60 ml IV ASDIRECTED ONE Stop: 05/23/21 14:31 Last Admin: 05/23/21 14:50 Dose: 60 ml Documented by: Non-Formulary Medication (Diazepam [Diastat Rectal Gel]) 1 each RC ASDIRECTED PRN PRN Reason: Seizures Pantoprazole Sodium (Pantoprazole 40 Mg Tab.Cr) 40 mg PO DAILY [facility] Last Admin: 05/24/21 09:40 Dose: 40 mg Documented by: Promethazine HCl (Promethazine 25 Mg Tab) 25 mg PO Q6H PRN PRN Reason: nausea, able to take PO - Exam General: Alert, Oriented, Cooperative, No Acute Distress Lungs: Clear to Auscultation, Normal Respiratory Effort Cardiovascular: Regular Rate, Regular Rhythm GI/Abdominal Exam: Soft, Non-Tender, No Distention, Abnormal Bowel Sounds (nl to hyperactive BS x 4) (Female) Exam: Deferred Extremities: No Pedal Edema, Normal Capillary Refill Peripheral Pulses: 2+: Radial (L), Radial (R) - Patient Data Lab Results Last 24 hrs: Laboratory Results - last 24 hr 05/26/21 05/26/21 Range/Units 06:20 06:20 WBC 21.2 H (3.0-10.3) x10-3/uL RBC 3.96 (3.60-5.20) x10(6)uL Hgb 10.8 L (11.4-15.5) g/dL Hct 34.4 (34.2-48.2) % MCV 86.9 (76.7-100.5) fL MCH 27.4 (23.9-33.9) pg MCHC 31.6 L (31.9-34.8) g/dL RDW 16.7 H (12.3-16.5) % Plt Count 324 (151-488) x10(3)uL MPV 7.5 (7.1-12.4) fL Add Manual Diff Yes Neutrophils % (Manual) 69 (46-82) % Lymphocytes % (Manual) 27 (13-37) % Monocytes % (Manual) 4 (4-12) % Sodium 139 (135-145) mmol/L Potassium 3.1 L (3.5-5.3) mmol/L Chloride 105 (100-110) mmol/L Carbon Dioxide 26 (21-32) mmol/L BUN 9 (7-18) mg/dL Creatinine 0.6 (0.55-1.02) mg/dL Est Cr Clr Drug Dosing 80.26 mL/min Estimated GFR (MDRD) > 60 (>60) BUN/Creatinine Ratio 15.0 (9-20) Glucose 97 (80-116) mg/dL Calcium 8.0 L (8.6-10.2) mg/dL Magnesium 1.8 (1.8-2.5) mg/dL Result Diagrams: 05/26/21 06:20 05/26/21 06:20 Chris Results Last 24 hrs: Microbiology 05/23/21 16:25 Aerobic Blood Culture - Preliminary Blood - Venous - Lab Draw NO GROWTH AFTER 2 DAYS Anaerobic Blood Culture - Preliminary NO GROWTH AFTER 2 DAYS 05/23/21 16:25 Aerobic Blood Culture - Preliminary Blood - Venous NO GROWTH AFTER 2 DAYS Anaerobic Blood Culture - Preliminary NO GROWTH AFTER 2 DAYS Sepsis Event Note - Evaluation Sepsis Screening Result: No Definite Risk - Focused Exam Vital Signs: Vital Signs Temp Pulse Resp BP Pulse Ox 05/26/21 12:00 84 18 98 05/26/21 08:00 97.5 F 86 17 147/94 H 98 05/26/21 07:49 97.5 F 86 17 147/94 H 98 - Problem List & Annotations (1) Clostridium difficile enterocolitis SNOMED Code(s): 173888733, 162492112 Code(s): A04.72 - ENTEROCOLITIS D/T CLOSTRIDIUM DIFFICILE, NOT SPCF RECUR Status: Acute Current Visit: Yes (2) Dehydration SNOMED Code(s): 51378237 Code(s): E86.0 - DEHYDRATION Status: Resolved Current Visit: Yes (3) Elevated C-reactive protein (CRP) SNOMED Code(s): 821044945448561 Code(s): R79.82 - ELEVATED C-REACTIVE PROTEIN (CRP) Status: Acute Current Visit: No (4) Failure to thrive SNOMED Code(s): 72700838 Code(s): VZH2886 - Status: Acute Current Visit: Yes (5) Severe mental handicap SNOMED Code(s): 92131512 Code(s): F72 - SEVERE INTELLECTUAL DISABILITIES Status: Chronic Current Visit: Yes (6) Seizure disorder SNOMED Code(s): 455098215 Code(s): G40.909 - EPILEPSY, UNSP, NOT INTRACTABLE, WITHOUT STATUS EPILEPTICU S Status: Chronic Current Visit: No (7) Hypomagnesemia SNOMED Code(s): 510453662 Code(s): E83.42 - HYPOMAGNESEMIA Status: Resolved Current Visit: Yes (8) Hypokalemia SNOMED Code(s): 69918345 Code(s): E87.6 - HYPOKALEMIA Status: Acute Current Visit: Yes Annotation/Comment:: stable at 3.1 - Problem List Review Problem List Initiated/Reviewed/Updated: Yes - My Orders Last 24 Hours: My Active Orders 05/25/21 21:00 Magnesium Oxide 400 mg PO BEDTIME 05/26/21 14:00 Potassium Chloride [Klor-Con 10] 10 meq PO TID 05/27/21 06:00 BASIC METABOLIC PANEL,BMP [CHEM] Routine CBC WITH AUTO DIFF [HEME] Routine CRP [C-REACTIVE PROTEIN] [CHEM] Routine - Plan Plan:: 1. C. difficile colitis, severe: Vancomycin 500 mg po qid, Metronidazole 500 mg IV q8h, day 3 Isolation. Normal diet at [facility] is regular diet, thin liquids, [facility] staff helping at lunch. she is eating better, 5 stools so far today. WBC down to 21.2. Repeat CBC, CRP tomorrow. Possibly switch Metronidazole to oral tomorrow to make sure she is tolerating. 2. Hypokalemia/hypomagnesemia: 3.1, 1.8, respectively. KCL 10 mEQ tid. Magnesium 400 mg at bedtime. Recheck BMP tomorrow. 3. Discharge planning: improvement of diarrhea, and oral intake, WBC trending down and once more stable switch Metronidazole to oral. Anticipate 48 more hours, possible discharge Thursday, adjust treatments as necessary.
[2021-05-26] MEDS ORDERED: Fluconazole 150 MG Tab PO ONE (14:04)
[2021-05-26] MEDS: Mirtazapine 15 MG Tab PO SCH (21:30)
[2021-05-26] MEDS: Magnesium Oxide 400 MG Tab PO SCH (21:36)
[2021-05-27] MEDS: metroNIDAZOLE/Normal Saline 500 MG in Premix Bag 1 BAG IV SCH (01:01)
[2021-05-27] MEDS: Sodium Chloride 0.9% 10 ML Syringe FLUSH PRN (02:15)
[2021-05-27] MEDS: Lactobacillus Rhamnosus GG (Probiotic) Cap PO SCH (08:25)
[2021-05-27] MEDS: Sertraline 50 MG Tab PO SCH (08:25)
[2021-05-27] MEDS: Multivitamins with Iron/Calcium/Folic Acid/Minerals Tab PO SCH (08:25)
[2021-05-27] MEDS: Sertraline 25 MG Tab PO SCH (08:26)
[2021-05-27] MEDS: Divalproex Sodium Delayed-Release 500 MG Tab.CR PO SCH ×2 (08:26→20:56)
[2021-05-27] MEDS: Calcium Carbonate 500 MG Tablet PO SCH ×2 (08:26→20:56)
[2021-05-27] MEDS: Ferrous Sulfate 325 MG Tab PO SCH ×2 (08:26→20:56)
[2021-05-27] MEDS: levETIRAcetam 500 MG Tab PO SCH ×2 (08:26→20:56)
[2021-05-27] MEDS: Cholecalciferol (Vitamin D3) 25 MCG Tab PO SCH (08:26)
[2021-05-27] MEDS: lamoTRIgine 100 MG Tab PO SCH ×2 (08:26→20:56)
[2021-05-27] MEDS: Enoxaparin 40 MG/0.4 ML Syringe SUBCUT SCH (08:27)
[2021-05-27] MEDS: Vancomycin 125 MG Cap PO SCH ×4 (08:27→20:56)
[2021-05-27] MEDS: Fluticasone Propionate Nasal Spray 16 GM Bottle NASBOTH SCH (08:29)
[2021-05-27] MEDS: Potassium Chloride 10 MEQ Tab.ER PO SCH ×3 (09:22→20:56)
[2021-05-27] MEDS: metroNIDAZOLE 500 MG Tab PO SCH ×3 (09:22→20:56)
[2021-05-27] MEDS: predniSONE 10 MG Tab PO SCH (09:24)
--- NOTE | 2021-05-27 14:08 | PCM.PN ---
- General Info Date of Service: 05/27/21 Subjective Update: She is not burping, gagging with breakfast since stopping the pantoprazole. alf staff stated Dr Chloe started in Oct 2020 for inflammation when he did EGD, didn't have end date for it. She ate cheeseburger, fries and sprite for lunch today, no issues. 7 diarrhea stools yesterday, so far 2 stools today. - Patient Data Vitals - Most Recent: Last Vital Signs Temp 97.8 F 05/27/21 08:15 Pulse 90 05/27/21 08:15 Resp 20 05/27/21 08:15 BP 171/100 H 05/27/21 08:15 Pulse Ox 98 05/27/21 08:15 Weight - Most Recent: 102 lb 3 oz Lab Results Last 24 Hours: Laboratory Results - last 24 hr 05/27/21 05/27/21 05/27/21 Range/Units 06:15 06:15 06:15 WBC 15.6 H (3.0-10.3) x10-3/uL RBC 3.73 (3.60-5.20) x10(6)uL Hgb 10.3 L (11.4-15.5) g/dL Hct 32.3 L (34.2-48.2) % MCV 86.5 (76.7-100.5) fL MCH 27.6 (23.9-33.9) pg MCHC 31.9 (31.9-34.8) g/dL RDW 16.7 H (12.3-16.5) % Plt Count 316 (151-488) x10(3)uL MPV 7.3 (7.1-12.4) fL Add Manual Diff Yes Neutrophils % (Manual) 53 (46-82) % Band Neutrophils % 2 (0-6) % Lymphocytes % (Manual) 40 H (13-37) % Monocytes % (Manual) 5 (4-12) % Sodium 139 (135-145) mmol/L Potassium 3.3 L (3.5-5.3) mmol/L Chloride 105 (100-110) mmol/L Carbon Dioxide 26 (21-32) mmol/L BUN 8 (7-18) mg/dL Creatinine 0.6 (0.55-1.02) mg/dL Est Cr Clr Drug Dosing 80.26 mL/min Estimated GFR (MDRD) > 60 (>60) BUN/Creatinine Ratio 13.3 (9-20) Glucose 99 (80-116) mg/dL Calcium 8.0 L (8.6-10.2) mg/dL C-Reactive Protein 2.4 H (0.5-0.9) mg/dL Chris Results Last 24 Hours: Microbiology 05/23/21 16:25 Aerobic Blood Culture - Preliminary Blood - Venous - Lab Draw NO GROWTH AFTER 3 DAYS Anaerobic Blood Culture - Preliminary NO GROWTH AFTER 3 DAYS 05/23/21 16:25 Aerobic Blood Culture - Preliminary Blood - Venous NO GROWTH AFTER 3 DAYS Anaerobic Blood Culture - Preliminary NO GROWTH AFTER 3 DAYS Med Orders - Current: Current Medications Calcium Carbonate/Glycine (Calcium Carbonate 500 Mg Tablet) 500 mg PO BID [facility] Last Admin: 05/27/21 08:26 Dose: 500 mg Documented by: Calcium Carbonate/Glycine (Calcium Carbonate 500 Mg Tab.Chew) 500 mg PO Q4H PRN PRN Reason: HEARTBURN Last Admin: 05/25/21 11:15 Dose: 500 mg Documented by: Cholecalciferol (Cholecalciferol (Vitamin D3) 25 Mcg Tab) 25 mcg PO DAILY [facility] Last Admin: 05/27/21 08:26 Dose: 25 mcg Documented by: Divalproex Sodium (Divalproex Sodium Delayed-Release 500 Mg Tab.Cr) 500 mg PO BID [facility] Last Admin: 05/27/21 08:26 Dose: 500 mg Documented by: Enoxaparin Sodium (Enoxaparin 40 Mg/0.4 Ml Syringe) 40 mg SUBCUT Q24H [facility] Last Admin: 05/27/21 08:27 Dose: 40 mg Documented by: Ferrous Sulfate (Ferrous Sulfate 325 Mg Tab) 325 mg PO BID [facility] Last Admin: 05/27/21 08:26 Dose: 325 mg Documented by: Fluconazole (Fluconazole 150 Mg Tab) 150 mg PO ONETIME ONE Stop: 05/29/21 09:01 Fluticasone Propionate (Fluticasone Propionate Nasal [place] 16 Gm Bottle) 0 gm NASBOTH DAILY [facility] Last Admin: 05/27/21 08:29 Dose: 1 spray Documented by: Lactobacillus Rhamnosus (Lactobacillus Rhamnosus Gg (Probiotic) Cap) 1 cap PO DAILY [facility] Last Admin: 05/27/21 08:25 Dose: 1 cap Documented by: Lamotrigine (Lamotrigine 100 Mg Tab) 100 mg PO BID [facility] Last Admin: 05/27/21 08:26 Dose: 100 mg Documented by: Levetiracetam (Levetiracetam 500 Mg Tab) 2,000 mg PO BID [facility] Last Admin: 05/27/21 08:26 Dose: 2,000 mg Documented by: Magnesium Oxide (Magnesium Oxide 400 Mg Tab) 400 mg PO BEDTIME [facility] Last Admin: 05/26/21 21:36 Dose: 400 mg Documented by: Metronidazole (Metronidazole 500 Mg Tab) 500 mg PO TID [facility] Last Admin: 05/27/21 09:22 Dose: 500 mg Documented by: Mirtazapine (Mirtazapine 15 Mg Tab) 15 mg PO BEDTIME [facility] Last Admin: 05/26/21 21:30 Dose: 15 mg Documented by: Multivitamins/Minerals (Multivitamins With Iron/Calcium/Folic Acid/Minerals Tab) 1 tab PO DAILY [facility] Last Admin: 05/27/21 08:25 Dose: 1 tab Documented by: Ondansetron HCl (Ondansetron 4 Mg/2 Ml Sdv) 4 mg IV Q4H PRN PRN Reason: Nausea/Vomiting Potassium Chloride (Potassium Chloride 10 Meq Tab.Er) 10 meq PO TID [facility] Last Admin: 05/27/21 09:22 Dose: 10 meq Documented by: Prednisone (Prednisone 10 Mg Tab) 10 mg PO DAILY [facility] Last Admin: 05/27/21 09:24 Dose: 10 mg Documented by: Sertraline HCl (Sertraline 50 Mg Tab) 50 mg PO DAILY [facility] Last Admin: 05/27/21 08:25 Dose: 50 mg Documented by: Sertraline HCl (Sertraline 25 Mg Tab) 25 mg PO DAILY [facility] Last Admin: 05/27/21 08:26 Dose: 25 mg Documented by: Sodium Chloride (Sodium Chloride 0.9% 10 Ml Syringe) 10 ml FLUSH ASDIRECTED PRN PRN Reason: Keep Vein Open Last Admin: 05/27/21 02:15 Dose: 10 ml Documented by: Vancomycin HCl (Vancomycin 125 Mg Cap) 500 mg PO QID [facility] Last Admin: 05/27/21 08:27 Dose: 500 mg Documented by: Discontinued Medications Fluconazole (Fluconazole 150 Mg Tab) 150 mg PO ONETIME ONE Stop: 05/26/21 14:05 Last Admin: 05/26/21 16:40 Dose: 150 mg Documented by: Sodium Chloride (Normal Saline) 1,000 mls @ 999 mls/hr IV .BOLUS ONE Stop: 05/23/21 13:19 Last Admin: 05/23/21 13:00 Dose: 300 mls/hr Documented by: Metronidazole 500 mg/ Premix 100 mls @ 100 mls/hr IV Q8H [facility] Last Admin: 05/23/21 19:05 Dose: Not Given Documented by: Metronidazole 500 mg/ Premix 100 mls @ 100 mls/hr IV Q8H [facility] Last Admin: 05/27/21 01:01 Dose: 100 mls/hr Documented by: Potassium Chloride/Sodium Chloride (Normal Saline With 20 Meq Kcl) 1,000 mls @ 100 mls/hr IV ASDIRECTED [facility] Stop: 05/25/21 19:29 Last Admin: 05/25/21 13:31 Dose: 100 mls/hr Documented by: Iopamidol (Iopamidol 755 Mg/Ml 75 Ml Bottle) 60 ml IV ASDIRECTED ONE Stop: 05/23/21 14:31 Last Admin: 05/23/21 14:50 Dose: 60 ml Documented by: Non-Formulary Medication (Diazepam [Diastat Rectal Gel]) 1 each RC ASDIRECTED PRN PRN Reason: Seizures Pantoprazole Sodium (Pantoprazole 40 Mg Tab.Cr) 40 mg PO DAILY [facility] Last Admin: 05/24/21 09:40 Dose: 40 mg Documented by: Promethazine HCl (Promethazine 25 Mg Tab) 25 mg PO Q6H PRN PRN Reason: nausea, able to take PO - Exam General: Alert, Oriented, Cooperative, No Acute Distress Lungs: Clear to Auscultation, Normal Respiratory Effort Cardiovascular: Regular Rate, Regular Rhythm GI/Abdominal Exam: Soft, Non-Tender, No Distention, Abnormal Bowel Sounds (hyperactive x4) Extremities: No Pedal Edema - Patient Data Lab Results Last 24 hrs: Laboratory Results - last 24 hr 05/27/21 05/27/21 05/27/21 Range/Units 06:15 06:15 06:15 WBC 15.6 H (3.0-10.3) x10-3/uL RBC 3.73 (3.60-5.20) x10(6)uL Hgb 10.3 L (11.4-15.5) g/dL Hct 32.3 L (34.2-48.2) % MCV 86.5 (76.7-100.5) fL MCH 27.6 (23.9-33.9) pg MCHC 31.9 (31.9-34.8) g/dL RDW 16.7 H (12.3-16.5) % Plt Count 316 (151-488) x10(3)uL MPV 7.3 (7.1-12.4) fL Add Manual Diff Yes Neutrophils % (Manual) 53 (46-82) % Band Neutrophils % 2 (0-6) % Lymphocytes % (Manual) 40 H (13-37) % Monocytes % (Manual) 5 (4-12) % Sodium 139 (135-145) mmol/L Potassium 3.3 L (3.5-5.3) mmol/L Chloride 105 (100-110) mmol/L Carbon Dioxide 26 (21-32) mmol/L BUN 8 (7-18) mg/dL Creatinine 0.6 (0.55-1.02) mg/dL Est Cr Clr Drug Dosing 80.26 mL/min Estimated GFR (MDRD) > 60 (>60) BUN/Creatinine Ratio 13.3 (9-20) Glucose 99 (80-116) mg/dL Calcium 8.0 L (8.6-10.2) mg/dL C-Reactive Protein 2.4 H (0.5-0.9) mg/dL Result Diagrams: 05/27/21 06:15 05/27/21 06:15 Chris Results Last 24 hrs: Microbiology 05/23/21 16:25 Aerobic Blood Culture - Preliminary Blood - Venous - Lab Draw NO GROWTH AFTER 3 DAYS Anaerobic Blood Culture - Preliminary NO GROWTH AFTER 3 DAYS 05/23/21 16:25 Aerobic Blood Culture - Preliminary Blood - Venous NO GROWTH AFTER 3 DAYS Anaerobic Blood Culture - Preliminary NO GROWTH AFTER 3 DAYS Sepsis Event Note - Evaluation Sepsis Screening Result: No Definite Risk - Focused Exam Vital Signs: Vital Signs Temp Temp Pulse Resp BP BP Pulse Ox 05/27/21 08:15 97.8 F 90 20 171/100 H 98 05/27/21 05:30 98.1 F 92 16 148/93 H 95 - Problem List & Annotations (1) Clostridium difficile enterocolitis SNOMED Code(s): 894985711, 566644147 Code(s): A04.72 - ENTEROCOLITIS D/T CLOSTRIDIUM DIFFICILE, NOT SPCF RECUR Status: Acute Current Visit: Yes (2) Dehydration SNOMED Code(s): 82153461 Code(s): E86.0 - DEHYDRATION Status: Resolved Current Visit: Yes (3) Elevated C-reactive protein (CRP) SNOMED Code(s): 283668261206565 Code(s): R79.82 - ELEVATED C-REACTIVE PROTEIN (CRP) Status: Acute Current Visit: No Annotation/Comment:: decreased to 2.4 (4) Failure to thrive SNOMED Code(s): 99546256 Code(s): MNT9865 - Status: Acute Current Visit: Yes (5) Severe mental handicap SNOMED Code(s): 36610518 Code(s): F72 - SEVERE INTELLECTUAL DISABILITIES Status: Chronic Current Visit: Yes (6) Seizure disorder SNOMED Code(s): 567933152 Code(s): G40.909 - EPILEPSY, UNSP, NOT INTRACTABLE, WITHOUT STATUS EPILEPTICUS Status: Chronic Current Visit: No (7) Hypomagnesemia SNOMED Code(s): 993283612 Code(s): E83.42 - HYPOMAGNESEMIA Status: Resolved Current Visit: Yes (8) Hypokalemia SNOMED Code(s): 84244190 Code(s): E87.6 - HYPOKALEMIA Status: Acute Current Visit: Yes A nnotation/Comment:: improved to 3.3. - Problem List Review Problem List Initiated/Reviewed/Updated: Yes - My Orders Last 24 Hours: My Active Orders 05/26/21 14:00 Potassium Chloride [Klor-Con 10] 10 meq PO TID 05/27/21 09:00 metroNIDAZOLE [Flagyl] 500 mg PO TID 05/28/21 06:00 BASIC METABOLIC PANEL,BMP [CHEM] Routine CBC WITH AUTO DIFF [HEME] Routine 05/29/21 09:00 Fluconazole [Diflucan] 150 mg PO ONETIME ONE - Plan Plan:: 1. C. difficile colitis, severe: Vancomycin 500 mg po qid, change Metronidazole 500 mg to oral tid, day 4 Isolation. Normal diet at care home is regular diet, thin liquids, care home staff helping at lunch. she is eating better, 5 stools so far today. WBC down to 15.6. Repeat CBC, CRP tomorrow. 2. Hypokalemia/hypomagnesemia: 3.1, 1.8, respectively. KCL 10 mEQ tid. Magnesium 400 mg at bedtime. Recheck BMP tomorrow. 3. Discharge planning: Anticipate discharge tomorrow, switched to Metronidazole today, WBC down to 15.6. Covid screen scheduled for tomorrow am for discharge disposition.
[2021-05-27] MEDS: Magnesium Oxide 400 MG Tab PO SCH (20:56)
[2021-05-27] MEDS: Mirtazapine 15 MG Tab PO SCH (20:56)
[2021-05-28] MEDS: Ferrous Sulfate 325 MG Tab PO SCH (09:09)
[2021-05-28] MEDS: lamoTRIgine 100 MG Tab PO SCH (09:09)
[2021-05-28] MEDS: metroNIDAZOLE 500 MG Tab PO SCH (09:09)
[2021-05-28] MEDS: Potassium Chloride 10 MEQ Tab.ER PO SCH (09:09)
[2021-05-28] MEDS: Lactobacillus Rhamnosus GG (Probiotic) Cap PO SCH (09:09)
[2021-05-28] MEDS: levETIRAcetam 500 MG Tab PO SCH (09:09)
[2021-05-28] MEDS: Divalproex Sodium Delayed-Release 500 MG Tab.CR PO SCH (09:09)
[2021-05-28] MEDS: Sertraline 50 MG Tab PO SCH (09:13)
[2021-05-28] MEDS: Multivitamins with Iron/Calcium/Folic Acid/Minerals Tab PO SCH (09:13)
[2021-05-28] MEDS: Calcium Carbonate 500 MG Tablet PO SCH (09:13)
[2021-05-28] MEDS: Sertraline 25 MG Tab PO SCH (09:13)
[2021-05-28] MEDS: predniSONE 10 MG Tab PO SCH (09:13)
[2021-05-28] MEDS: Vancomycin 125 MG Cap PO SCH (09:13)
[2021-05-28] MEDS: Cholecalciferol (Vitamin D3) 25 MCG Tab PO SCH (09:13)
[2021-05-28] MEDS: Enoxaparin 40 MG/0.4 ML Syringe SUBCUT SCH (09:17)
[2021-05-28 09:18] VITALS: BP 143/91; PULSE 95
[2021-05-28] MEDS: Fluticasone Propionate Nasal Spray 16 GM Bottle NASBOTH SCH (09:24)
--- NOTE | 2021-05-28 10:09 | PCM.DCSUM1 ---
Discharge Summary - Hospital Course HPI Initial Comments: Yoli presented to ER yesterday with profuse diarrhea, decreases oral intake, activity and responsiveness since 05/21, 6-8 episodes/day. She had emesis and then again yesterday. She has severe mental retardation and history of seizure disorder with a mood disorder, resident of skilled nursing staff. The skilled nursing staff reports that the patient has had ongoing weight loss since 2018, she was well over 200 lbs and since last year May has lost another 60 lbs. She has had multiple evaluations and some workups with most recently being seen by rheumatology on 05/14/2021 and was placed on azathioprine, Plaquenil and prednisone. Apparently over the next 24 hours the patient developed protracted vomiting and profuse diarrhea. The Plaquenil stopped and later on the azathioprine was stopped and the patient did seem to improve somewhat. Described as watery with specks. She normally is on regular diet, thin liquids. ay she had 7-8 stools and vomiting 1. Normally, she is talkative and interactive and she has basically been in bed for the past 4 days. No fevers, chills, cough, shortness of breath. Abdominal pain but can't state were pain is located. She has had EGD to work up the weight loss but she was not able to do bowel prep so colonoscopy was not done. She had negative lung biopsy, negative bone marrow biopsy. Majority of history comes from the skilled nursing staff member. She is 2 person assist at the skilled nursing. FULL CODE. In ER: WBC 48, CRP 13.7, Lactic acid 0.7. Blood culture pending. UA negative. CXR negative. Covid negative. C. difficile positive. CT abdomen/pelvis showed extensive colitis of transverse, descending and sigmoid, rectal colon. Started on Vancomycin & Flagyl in ER along with IV fluids. Diagnosis: Stroke: No - Discharge Data Discharge Date: 05/28/21 ([facility]) Discharge Disposition: Home, W Home Health Agency 06 Condition: Stable - Referral to Home Health Date of Face to Face Encounter: 05/28/21 Reason for Homebound Status: long-term resident Primary Care Physician: Guanaco Wade Skilled Need: resume previous cares at skilled nursing - Discharge Diagnosis/Problem(s) (1) Clostridium difficile enterocolitis SNOMED Code(s): 148699870, 695377986 ICD Code: A04.72 - ENTEROCOLITIS D/T CLOSTRIDIUM DIFFICILE, NOT SPCF RECUR Status: Acute Current Visit: Yes Problem Details: had severe disease, has responded well to treatment. WBC down to 16.3, had 2 formed stools today. Tolerating oral metronidazole. Will go home with oral Vancomycin and Metronidazole to complete 10 day course. May come out of isolation when antibiotics complete. (2) Elevated C-reactive protein (CRP) SNOMED Code(s): 256900093805095 ICD Code: R79.82 - ELEVATED C-REACTIVE PROTEIN (CRP) Status: Acute Current Visit: No Problem Details: decreased to 2.4 (3) Failure to thrive SNOMED Code(s): 81774307 ICD Code: XGC2623 - Status: Acute Current Visit: Yes (4) Severe mental handicap SNOMED Code(s): 59630376 ICD Code: F72 - SEVERE INTELLECTUAL DISABILITIES Status: Chronic Current Visit: Yes (5) Seizure disorder SNOMED Code(s): 230176755 ICD Code: G40.909 - EPILEPSY, UNSP, NOT INTRACTABLE, WITHOUT STATUS EPILEPTICUS Status: Chronic Current Visit: No (6) Hypomagnesemia SNOMED Code(s): 259612642 ICD Code: E83.42 - HYPOMAGNESEMIA Status: Resolved Current Visit: Yes (7) Hypokalemia SNOMED Code(s): 44564700 ICD Code: E87.6 - HYPOKALEMIA Status: Resolved Current Visit: Yes Problem Details: K3.9 (8) Dehydration SNOMED Code(s): 06811767 ICD Code: E86.0 - DEHYDRATION Status: Resolved Current Visit: Yes - Patient Summary/Data Hospital Course: Due to severe disease involving transverse, descending, sigmoid, & rectum, along with WBC 49.4 she was started in ER on Vancomycin 500 mg po qid, Metronidazole 500 mg IV q8h, her WBC trended down to 36.3, 21.2, 15.6 then 16.3 today after switching to oral Metronidazole yesterday. Her stools have slowed and were mushy on 05/27 and had 2 formed stools today(05/28). She has been maintaining her hydration, her potassium was low at 3.1, received IV KCL 20 mEq and then 10 mEQ oral, and corrected to 3.9 today. Also had hypomagnesemia of 1.6, given Magnesium 400 mg at bedtime, came up to 1.8. She has been afebrile since admission. We had stopped her Pantoprazole as skilled nursing staff stated she would be "gaggy" and have emesis about 30 min after taking it. She was started on it after EGD October 2020 for inflammation. Her oral intake improved, she has not had emesis in morning or gagging since stopping Pantoprazole. Did start Tums as needed dyspepsia since she is on the steroid taper. She had some elevated blood pressures during her stay highest was 170/100 majority where in the 130-140s/80-90s range, she had 123/91 yesterday after the 170/100 without intervention. Will have her follow up with her PCP in regards to her blood pressures. - Patient Instructions Diet: Usual Diet as Tolerated Activity: As Tolerated Notify Provider of: Fever, Increased Pain, Nausea and/or Vomiting (diarrhea) Other/Special Instructions: Follow up with regular doctor in 1 week. Take Metronidazole 1 tab three times a day and Vancomycin 4 cap four times a day until all gone. Hold Miralax until finished all antibiotics. Discontinued Pantoprazole. - Discharge Plan *PRESCRIPTION DRUG MONITORING PROGRAM REVIEWED*: Not Applicable *COPY OF PRESCRIPTION DRUG MONITORING REPORT IN PATIENT ELIZABETH: Not Applicable Prescriptions/Med Rec: metroNIDAZOLE [Flagyl] 500 mg PO TID #15 tablet Vancomycin [Vancocin 125 MG Capsule] 500 mg PO QID #84 cap Home Medications: Home Meds Multivits w-Iron,Hematinic [Complete] 1 tab PO DAILY 05/02/13 [History] levETIRAcetam [Levetiracetam] 2,000 mg PO BID 05/02/13 [History] Sertraline HCl 25 mg PO DAILY 08/28/15 [History] diazePAM [Diastat Rectal Gel] 1 each RC ASDIRECTED PRN 08/28/15 [History] Mirtazapine [Remeron] 15 mg PO BEDTIME 11/18/16 [History] L.acidoph,Paracasei, B.lactis [Probiotic] 1 each PO DAILY 03/17/18 [History] Cannabidiol (Cbd) Extract [Cannabis (Medical)] 1 cap PO BID 10/03/20 [History] Sertraline [Zoloft] 50 mg PO DAILY 10/03/20 [History] Calcium Citrate/Vitamin D3 [[place] Calcium-Vit D 200-250] 1 tab PO BID 05/23/21 [History] Cholecalciferol (Vitamin D3) [Vitamin D3] 25 mcg PO DAILY 05/23/21 [History] Divalproex Sodium [Depakote] 500 mg PO BID 05/23/21 [History] Ferrous Sulfate 324 mg PO BID 05/23/21 [History] Fluticasone Propionate [Flonase] 1 spray NASBOTH DAILY 05/23/21 [History] lamoTRIgine [Lamotrigine] 100 mg PO BID 05/23/21 [History] predniSONE [Prednisone] 10 mg PO DAILY 05/23/21 [History] Vancomycin [Vancocin 125 MG Capsule] 500 mg PO QID #84 cap 05/28/21 [Rx] metroNIDAZOLE [Flagyl] 500 mg PO TID #15 tablet 05/28/21 [Rx] polyethylene glycoL 3350 [Gavilax] 17 gm PO DAILY #0 05/28/21 [Rx] Patient Handouts: Clostridioides Difficile Infection, [id number] Referrals: Guanaco Wade [Primary Care Provider] - - Discharge Summary/Plan Comment DC Time >30 min.: No Total # of Minutes for Discharge Time: 22 min - General Info Date of Service: 05/28/21 Subjective Update: Yoli is doing well this morning, denies any belly pain. Had 2 formed stools today, had 2 diarrhea stools and 3 mushy stools yesterday. No fevers. Home today. Functional Status: Reports: Tolerating Diet, Urinating, New Symptoms - Patient Data Vitals - Most Recent: Last Vital Signs Temp 97.9 F 05/28/21 08:00 Pulse 95 05/28/21 08:00 Resp 16 05/28/21 08:00 BP 143/91 H 05/28/21 08:00 Pulse Ox 98 05/28/21 08:00 Weight - Most Recent: 102 lb 3 oz Lab Results - Last 24 hrs: Laboratory Results - last 24 hr 05/28/21 05/28/21 05/28/21 Range/Units 06:20 06:35 06:35 WBC 16.3 H (3.0-10.3) x10-3/uL RBC 3.80 (3.60-5.20) x10(6)uL Hgb 10.3 L (11.4-15.5) g/dL Hct 32.7 L (34.2-48.2) % MCV 86.1 (76.7-100.5) fL MCH 27.2 (23.9-33.9) pg MCHC 31.6 L (31.9-34.8) g/dL RDW 17.0 H (12.3-16.5) % Plt Count 327 (151-488) x10(3)uL MPV 7.5 (7.1-12.4) fL Add Manual Diff Yes Neutrophils % (Manual) 55 (46-82) % Band Neutrophils % 3 (0-6) % Lymphocytes % (Manual) 36 (13-37) % Monocytes % (Manual) 6 (4-12) % Sodium 138 (135-145) mmol/L Potassium 3.9 (3.5-5.3) mmol/L Chloride 105 (100-110) mmol/L Carbon Dioxide 28 (21-32) mmol/L BUN 5 L (7-18) mg/dL Creatinine 0.6 (0.55-1.02) mg/dL Est Cr Clr Drug Dosing 80.26 mL/min Estimated GFR (MDRD) > 60 (>60) BUN/Creatinine Ratio 8.3 L (9-20) Glucose 90 (80-116) mg/dL Calcium 8.2 L (8.6-10.2) mg/dL SARS-CoV-2 RNA (LOREN) Negative (NEGATIVE) MELODY Results - Last 24 hrs: Microbiology 05/23/21 16:25 Aerobic Blood Culture - Preliminary Blood - Venous - Lab Draw NO GROWTH AFTER 4 DAYS Anaerobic Blood Culture - Preliminary NO GROWTH AFTER 4 DAYS 05/23/21 16:25 Aerobic Blood Culture - Preliminary Blood - Venous NO GROWTH AFTER 4 DAYS Anaerobic Blood Culture - Preliminary NO GROWTH AFTER 4 DAYS Med Orders - Current: Current Medications Calcium Carbonate/Glycine (Calcium Carbonate 500 Mg Tablet) 500 mg PO BID [facility] Last Admin: 05/28/21 09:13 Dose: 500 mg Documented by: Calcium Carbonate/Glycine (Calcium Carbonate 500 Mg Tab.Chew) 500 mg PO Q4H PRN PRN Reason: HEARTBURN Last Admin: 05/25/21 11:15 Dose: 500 mg Documented by: Cholecalciferol (Cholecalciferol (Vitamin D3) 25 Mcg Tab) 25 mcg PO DAILY [facility] Last Admin: 05/28/21 09:13 Dose: 25 mcg Documented by: Divalproex Sodium (Divalproex Sodium Delayed-Release 500 Mg Tab.Cr) 500 mg PO BID [facility] Last Admin: 05/28/21 09:09 Dose: 500 mg Documented by: Enoxaparin Sodium (Enoxaparin 40 Mg/0.4 Ml Syringe) 40 mg SUBCUT Q24H [facility] Last Admin: 05/28/21 09:17 Dose: 40 mg Documented by: Ferrous Sulfate (Ferrous Sulfate 325 Mg Tab) 325 mg PO BID [facility] Last Admin: 05/28/21 09:09 Dose: 325 mg Documented by: Fluconazole (Fluconazole 150 Mg Tab) 150 mg PO ONETIME ONE Stop: 05/29/21 09:01 Fluticasone Propionate (Fluticasone Propionate Nasal [place] 16 Gm Bottle) 0 gm NASBOTH DAILY [facility] Last Admin: 05/28/21 09:24 Dose: 1 spray Documented by: Lactobacillus Rhamnosus (Lactobacillus Rhamnosus Gg (Probiotic) Cap) 1 cap PO DAILY [facility] Last Admin: 05/28/21 09:09 Dose: 1 cap Documented by: Lamotrigine (Lamotrigine 100 Mg Tab) 100 mg PO BID [facility] Last Admin: 05/28/21 09:09 Dose: 100 mg Documented by: Levetiracetam (Levetiracetam 500 Mg Tab) 2,000 mg PO BID [facility] Last Admin: 05/28/21 09:09 Dose: 2,000 mg Documented by: Magnesium Oxide (Magnesium Oxide 400 Mg Tab) 400 mg PO BEDTIME [facility] Last Admin: 05/27/21 20:56 Dose: 400 mg Documented by: Metronidazole (Metronidazole 500 Mg Tab) 500 mg PO TID [facility] Last Admin: 05/28/21 09:09 Dose: 500 mg Documented by: Mirtazapine (Mirtazapine 15 Mg Tab) 15 mg PO BEDTIME [facility] Last Admin: 05/27/21 20:56 Dose: 15 mg Documented by: Multivitamins/Minerals (Multivitamins With Iron/Calcium/Folic Acid/Minerals Tab) 1 tab PO DAILY [facility] Last Admin: 05/28/21 09:13 Dose: 1 tab Documented by: Ondansetron HCl (Ondansetron 4 Mg/2 Ml Sdv) 4 mg IV Q4H PRN PRN Reason: Nausea/Vomiting Potassium Chloride (Potassium Chloride 10 Meq Tab.Er) 10 meq PO TID [facility] Last Admin: 05/28/21 09:09 Dose: 10 meq Documented by: Prednisone (Prednisone 10 Mg Tab) 10 mg PO DAILY [facility] Last Admin: 05/28/21 09:13 Dose: 10 mg Documented by: Sertraline HCl (Sertraline 50 Mg Tab) 50 mg PO DAILY [facility] Last Admin: 05/28/21 09:13 Dose: 50 mg Documented by: Sertraline HCl (Sertraline 25 Mg Tab) 25 mg PO DAILY [facility] Last Admin: 05/28/21 09:13 Dose: 25 mg Documented by: Sodium Chloride (Sodium Chloride 0.9% 10 Ml Syringe) 10 ml FLUSH ASDIRECTED PRN PRN Reason: Keep Vein Open Last Admin: 05/27/21 02:15 Dose: 10 ml Documented by: Vancomycin HCl (Vancomycin 125 Mg Cap) 500 mg PO QID [facility] Last Admin: 05/28/21 09:13 Dose: 500 mg Documented by: Discontinued Medications Fluconazole (Fluconazole 150 Mg Tab) 150 mg PO ONETIME ONE Stop: 05/26/21 14:05 Last Admin: 05/26/21 16:40 Dose: 150 mg Documented by: Sodium Chloride (Normal Saline) 1,000 mls @ 999 mls/hr IV .BOLUS ONE Stop: 05/23/21 13:19 Last Admin: 05/23/21 13:00 Dose: 300 mls/hr Documented by: Metronidazole 500 mg/ Premix 100 mls @ 100 mls/hr IV Q8H [facility] Last Admin: 05/23/21 19:05 Dose: Not Given Documented by: Metronidazole 500 mg/ Premix 100 mls @ 100 mls/hr IV Q8H [facility] Last Admin: 05/27/21 01:01 Dose: 100 mls/hr Documented by: Potassium Chloride/Sodium Chloride (Normal Saline With 20 Meq Kcl) 1,000 mls @ 100 mls/hr IV ASDIRECTED [facility] Stop: 05/25/21 19:29 Last Admin: 05/25/21 13:31 Dose: 100 mls/hr Documented by: Iopamidol (Iopamidol 755 Mg/Ml 75 Ml Bottle) 60 ml IV ASDIRECTED ONE Stop: 05/23/21 14:31 Last Admin: 05/23/21 14:50 Dose: 60 ml Documented by: Non-Formulary Medication (Diazepam [Diastat Rectal Gel]) 1 each RC ASDIRECTED PRN PRN Reason: Seizures Pantoprazole Sodium (Pantoprazole 40 Mg Tab.Cr) 40 mg PO DAILY [facility] Last Admin: 05/24/21 09:40 Dose: 40 mg Documented by: Promethazine HCl (Promethazine 25 Mg Tab) 25 mg PO Q6H PRN PRN Reason: nausea, able to take PO - Exam General: Reports: Alert, Oriented, Cooperative, No Acute Distress Lungs: Reports: Clear to Auscultation, Normal Respiratory Effort Cardiovascular: Reports: Regular Rate, Regular Rhythm GI/Abdominal Exam: Normal Bowel Sounds, Soft, Non-Tender, No Distention *Q Meaningful Use (DIS) - VTE *Q VTE Mechanical Contraindications *Q: At Risk for Falls
[2021-05-29] MEDS ORDERED: Fluconazole 150 MG Tab PO ONE (09:00)
== END 2021-05-28 10:00 | disposition home health service (06) | DRG 372 ==
LOC: FB.ED 11:15 → FB.MS 18:00
PROVIDERS: ADMIT Family Medicine; ATTEND Family Medicine
DX: A04.72 Enterocolitis due to Clostridium difficile, not specified as recurrent (principal); F72 Severe intellectual disabilities; Z68.1 Body mass index [BMI] 19.9 or less, adult; E86.0 Dehydration; G40.909 Epilepsy, unspecified, not intractable, without status epilepticus; F91.9 Conduct disorder, unspecified; E83.42 Hypomagnesemia; E87.6 Hypokalemia; F31.9 Bipolar disorder, unspecified; F41.9 Anxiety disorder, unspecified; R63.4 Abnormal weight loss; D64.9 Anemia, unspecified; Z20.822 Contact with and (suspected) exposure to COVID-19; Z88.8 Allergy status to other drugs, medicaments and biological substances; Z79.899 Other long term (current) drug therapy; Z79.52 Long term (current) use of systemic steroids
CPT/HCPCS: 36410; 36415; 71045; 74177; 80048; 80053; 81001; 83605; 83735; 84484; 85025; 86140; 87040; 87230; 93005; 99285-25; A9270-GY; J1650; J3480; J3490; J7030; J7512; Q9967; U0002

== ENCOUNTER 2022-05-11 15:33 | Emergency (ER) | payer MEDICARE, MEDICAID ==
[2022-05-11 20:01] VITALS: BP 109/74; PULSE 96
== END 2022-05-11 16:35 | disposition home or self-care (01) ==
LOC: FB.ED 15:33
DX: S09.90XA Unspecified injury of head, initial encounter (principal); G40.909 Epilepsy, unspecified, not intractable, without status epilepticus; W01.198A Fall on same level from slipping, tripping and stumbling with subsequent striking against other object, initial encounter
CPT/HCPCS: 99283

== ENCOUNTER 2023-04-11 16:05 | Emergency (ER) | payer MEDICARE, MEDICAID ==
[2023-04-11 16:49] LABS: BASOPHILS PERCENT AUTO 0.3 % (0.2-1.5); EOSINOPHILS PERCENT AUTO 0.2 % (0.6-8.1); HEMATOCRIT 33.1 % (34.2-48.2); HEMOGLOBIN 10.7 g/dL (11.4-15.5); LYMPHOCYTES ABSOLUTE AUTO 1.9 x10-3/uL (1.0-4.4); LYMPHOCYTES PERCENT AUTO 23.4 % (18.4-52.1); MEAN CORPUSCULAR HGB CONC 32.5 g/dL (31.9-34.8); MEAN CORPUSCULAR VOLUME 92.4 fL (76.7-100.5); MEAN PLATELET VOLUME 7.5 fL (7.1-12.4); MONOCYTES ABSOLUTE AUTO 0.3 x10-3/uL (0.3-1.0); MONOCYTES PERCENT AUTO 3.8 % (4.4-15.7); NEUTROPHILS ABSOLUTE AUTO 5.8 x10-3/uL (1.5-6.3); NEUTROPHILS PERCENT AUTO 72.3 % (30.8-76.2); PLATELET COUNT,PLT 278 x10(3)uL (151-488); RED BLOOD CELL COUNT 3.58 x10(6)uL (3.60-5.20); RED CELL DISTRIBUTION WIDTH 18.7 % (12.3-16.5)
[2023-04-11 16:51] LABS: BLOOD UREA NITROGEN,BUN 24 mg/dL (7-18); CALCIUM 9.3 mg/dL (8.6-10.2); CARBON DIOXIDE,CO2 29 mmol/L (21-32); CHLORIDE,CL 100 mmol/L (100-110); CREATININE 0.8 mg/dL (0.55-1.02); ESTIMATED GFR 88 mL/min (>60); GLUCOSE RANDOM 124 mg/dL (80-116); POTASSIUM,K 4.1 mmol/L (3.5-5.3); SODIUM,NA 137 mmol/L (135-145)
[2023-04-11 17:02] LABS: A/G RATIO 0.6; ALANINE AMINOTRANSFERASE,ALT 20 U/L (12-36); ALBUMIN 2.8 g/dL (3.5-5.2); ALKALINE PHOSPHATASE 81 IU/L (56-112); ASPARTATE AMNIOTRANSFERASE,AST 18 IU/L (5-25); BILIRUBIN TOTAL 0.2 mg/dL (0.1-1.3); MAGNESIUM 1.6 mg/dL (1.8-2.5); PROTEIN TOTAL,TP 7.3 g/dL (6.0-8.0)
[2023-04-11 19:26] VITALS: BP 120/82; PULSE 74
== END 2023-04-11 17:45 | disposition home or self-care (01) ==
LOC: FB.ED 16:05
DX: R56.9 Unspecified convulsions (principal); E83.42 Hypomagnesemia; B37.9 Candidiasis, unspecified; D64.9 Anemia, unspecified; Z79.899 Other long term (current) drug therapy; Z88.8 Allergy status to other drugs, medicaments and biological substances
CPT/HCPCS: 36415; 80053; 83735; 85025; 99284

== ENCOUNTER 2023-09-08 09:55 | Emergency (ER) | payer MEDICARE, MEDICAID ==
[2023-09-08 11:07] VITALS: BP 150/85; PULSE 96
[2023-09-08 11:10] LABS: APPEARANCE,URINE SLIGHTLY CLOUDY (CLEAR); COLOR,URINE YELLOW (YELLOW); WBC,URINE 0-5 (0-5)
[2023-09-08 11:13] LABS: BACTERIA,URINE MANY (NS); SQUAMOUS EPITHELIAL CELLS,UR OCCASIONAL (NS,R,O)
[2023-09-08 12:06] LABS: BILIRUBIN,URINE NEGATIVE (NEGATIVE); GLUCOSE,URINE NORMAL (NORMAL); KETONES,URINE NEGATIVE (NEGATIVE); LEUKOCYTE ESTERASE,URINE NEGATIVE (NEGATIVE); NITRITE,URINE POSITIVE (NEGATIVE); OCCULT BLOOD,URINE NEGATIVE (NEGATIVE); PROTEIN,URINE NEGATIVE (NEGATIVE); UROBILINOGEN,URINE NORMAL (NEGATIVE)
[2023-09-08 12:14] LABS: INFLUENZA A NAA NEGATIVE (NEGATIVE); INFLUENZA B NAA NEGATIVE (NEGATIVE); RESPIRATORY SYNCYTIAL VIR NAA NEGATIVE (NEGATIVE)
[2023-09-08] MEDS ORDERED: levETIRAcetam 500 MG/5 ML Solution ML 473 ml Bottle PO ONE (12:22)
[2023-09-08 12:31] LABS: HEMATOCRIT 33.1 % (34.2-48.2); HEMOGLOBIN 11.1 g/dL (11.4-15.5); LYMPHOCYTES ABSOLUTE AUTO 1.5 x10-3/uL (1.0-4.4); LYMPHOCYTES PERCENT AUTO 39.1 % (18.4-52.1); MEAN CORPUSCULAR HEMOGLOBIN 34.6 pg (23.9-33.9); MEAN CORPUSCULAR HGB CONC 33.6 g/dL (31.9-34.8); MEAN PLATELET VOLUME 8.9 fL (7.1-12.4); MONOCYTES ABSOLUTE AUTO 0.4 x10-3/uL (0.3-1.0); MONOCYTES PERCENT AUTO 11.7 % (4.4-15.7); NEUTROPHILS ABSOLUTE AUTO 1.8 x10-3/uL (1.5-6.3); NEUTROPHILS PERCENT AUTO 47.2 % (30.8-76.2); PLATELET COUNT,PLT 137 x10(3)uL (151-488); RED BLOOD CELL COUNT 3.21 x10(6)uL (3.60-5.20); RED CELL DISTRIBUTION WIDTH 14.8 % (12.3-16.5); WHITE BLOOD CELL COUNT,WBC 3.8 x10-3/uL (3.0-10.3)
[2023-09-08 12:33] LABS: A/G RATIO 0.9; ALBUMIN 3.2 g/dL (3.5-5.2); ALKALINE PHOSPHATASE 73 IU/L (56-112); BILIRUBIN TOTAL 0.4 mg/dL (0.1-1.3); BLOOD UREA NITROGEN,BUN 23 mg/dL (7-18); BUN/CREATININE RATIO 28.8 (9-20); CALCIUM 9.7 mg/dL (8.6-10.2); CARBON DIOXIDE,CO2 29 mmol/L (21-32); CHLORIDE,CL 98 mmol/L (100-110); CREATININE 0.8 mg/dL (0.55-1.02); EST CRCL DRUG DOSING (CG) 75.26 mL/min; ESTIMATED GFR 88 mL/min (>60); GLUCOSE RANDOM 100 mg/dL (80-116); MAGNESIUM 1.5 mg/dL (1.8-2.5); POTASSIUM,K 3.6 mmol/L (3.5-5.3); PROTEIN TOTAL,TP 6.6 g/dL (6.0-8.0); SODIUM,NA 136 mmol/L (135-145)
[2023-09-08 12:34] LABS: ALANINE AMINOTRANSFERASE,ALT 29 U/L (12-36); ASPARTATE AMNIOTRANSFERASE,AST 33 IU/L (5-25)
[2023-09-08 12:35] LABS: INR 1.01 (1.00-1.24); PROTHROMBIN TIME 10.5 sec (9.0-11.1); PTT,PARTIAL THROMBOPLSTIN TIME 28.9 SECONDS (24.4-33.2)
[2023-09-08] MEDS: levETIRAcetam 500 MG Tab PO ONE (12:35)
[2023-09-08] MEDS: lamoTRIgine 100 MG Tab PO ONE (12:35)
[2023-09-08] MEDS: Divalproex Sodium Delayed-Release 500 MG Tab.CR PO ONE (12:36)
[2023-09-08 12:43] LABS: CORONAVIRUS COVID-19 NAA NEGATIVE (NEGATIVE)
[2023-09-09 17:19] LABS: VALPROIC ACID 31 ug/mL (50-100)
[2023-09-09 17:40] LABS: KEPPRA (LEVETIRACETAM) 11 ug/mL (10-40)
== END 2023-09-08 15:20 ==
LOC: FB.ED 09:55
DX: R40.4 Transient alteration of awareness (principal); R29.818 Other symptoms and signs involving the nervous system; R47.9 Unspecified speech disturbances; Z88.8 Allergy status to other drugs, medicaments and biological substances
CPT/HCPCS: 0241U; 36415; 70450; 70551; 71045; 80053; 80164; 80177; 81001; 82947; 83735; 85025; 85610; 85730; 87086; 87088; 87186; 93005; 93010; 99284; 99285; A9270-GY

== ENCOUNTER 2023-09-18 16:00 | Emergency (ER) | payer MEDICARE, MEDICAID ==
[2023-09-18 16:53] LABS: BASOPHILS PERCENT AUTO 0.9 % (0.2-1.5); EOSINOPHILS PERCENT AUTO 0.2 % (0.6-8.1); HEMATOCRIT 34.7 % (34.2-48.2); HEMOGLOBIN 11.9 g/dL (11.4-15.5); LYMPHOCYTES ABSOLUTE AUTO 0.8 x10-3/uL (1.0-4.4); LYMPHOCYTES PERCENT AUTO 24.8 % (18.4-52.1); MEAN CORPUSCULAR HEMOGLOBIN 34.6 pg (23.9-33.9); MEAN CORPUSCULAR HGB CONC 34.2 g/dL (31.9-34.8); MEAN PLATELET VOLUME 8.2 fL (7.1-12.4); MONOCYTES ABSOLUTE AUTO 0.1 x10-3/uL (0.3-1.0); MONOCYTES PERCENT AUTO 2.7 % (4.4-15.7); NEUTROPHILS ABSOLUTE AUTO 2.2 x10-3/uL (1.5-6.3); NEUTROPHILS PERCENT AUTO 71.4 % (30.8-76.2); PLATELET COUNT,PLT 159 x10(3)uL (151-488); RED BLOOD CELL COUNT 3.43 x10(6)uL (3.60-5.20); RED CELL DISTRIBUTION WIDTH 14.4 % (12.3-16.5); WHITE BLOOD CELL COUNT,WBC 3.1 x10-3/uL (3.0-10.3)
[2023-09-18 16:55] LABS: BLOOD UREA NITROGEN,BUN 18 mg/dL (7-18); BUN/CREATININE RATIO 22.5 (9-20); CARBON DIOXIDE,CO2 30 mmol/L (21-32); CHLORIDE,CL 93 mmol/L (100-110); CREATININE 0.8 mg/dL (0.55-1.02); ESTIMATED GFR 88 mL/min (>60); GLUCOSE RANDOM 116 mg/dL (80-116); POTASSIUM,K 4.7 mmol/L (3.5-5.3); SODIUM,NA 129 mmol/L (135-145)
[2023-09-18 17:00] VITALS: BP 127/74; PULSE 78
[2023-09-18 17:01] LABS: A/G RATIO 0.8; ALANINE AMINOTRANSFERASE,ALT 27 U/L (12-36); ALKALINE PHOSPHATASE 75 IU/L (56-112); ASPARTATE AMNIOTRANSFERASE,AST 44 IU/L (5-25); BILIRUBIN TOTAL 0.5 mg/dL (0.1-1.3); PROTEIN TOTAL,TP 6.8 g/dL (6.0-8.0)
[2023-09-18 17:06] LABS: MEAN CORPUSCULAR VOLUME 101.2 fL (76.7-100.5)
[2023-09-22 14:01] LABS: KEPPRA (LEVETIRACETAM) 50 ug/mL (10-40)
[2023-09-22 16:20] LABS: VALPROIC ACID 76 ug/mL (50-100)
== END 2023-09-18 17:59 | disposition home or self-care (01) ==
LOC: FB.ED 16:00
DX: E87.1 Hypo-osmolality and hyponatremia (principal); Z88.8 Allergy status to other drugs, medicaments and biological substances; Z79.899 Other long term (current) drug therapy
CPT/HCPCS: 36415; 80053; 80164; 80177; 85025; 99283

== ENCOUNTER 2023-09-20 09:53 | Emergency (ER) | payer MEDICARE, MEDICAID ==
[2023-09-20] MEDS: Sodium Chloride 0.9% 10 ML Syringe FLUSH PRN (10:05)
[2023-09-20] MEDS: Sodium Chloride 0.9% 1,000 ML IV SCH (10:06)
[2023-09-20] MEDS: Ondansetron 4 MG/2 ML SDV IVPUSH ONE (10:11)
[2023-09-20] MEDS: Atropine/Diphenoxylate 0.025-2.5 MG Tab PO ONE (10:16)
[2023-09-20 10:21] LABS: EOSINOPHILS PERCENT AUTO 0.3 % (0.6-8.1); HEMATOCRIT 32.6 % (34.2-48.2); HEMOGLOBIN 11.1 g/dL (11.4-15.5); LYMPHOCYTES ABSOLUTE AUTO 0.6 x10-3/uL (1.0-4.4); LYMPHOCYTES PERCENT AUTO 14.7 % (18.4-52.1); MEAN CORPUSCULAR HEMOGLOBIN 34.5 pg (23.9-33.9); MEAN CORPUSCULAR HGB CONC 33.9 g/dL (31.9-34.8); MEAN CORPUSCULAR VOLUME 101.8 fL (76.7-100.5); MEAN PLATELET VOLUME 8.2 fL (7.1-12.4); MONOCYTES ABSOLUTE AUTO 0.4 x10-3/uL (0.3-1.0); MONOCYTES PERCENT AUTO 9.2 % (4.4-15.7); NEUTROPHILS ABSOLUTE AUTO 3.2 x10-3/uL (1.5-6.3); NEUTROPHILS PERCENT AUTO 74.8 % (30.8-76.2); PLATELET COUNT,PLT 173 x10(3)uL (151-488); RED CELL DISTRIBUTION WIDTH 14.2 % (12.3-16.5); WHITE BLOOD CELL COUNT,WBC 4.3 x10-3/uL (3.0-10.3)
[2023-09-20 10:27] LABS: A/G RATIO 0.8; ALANINE AMINOTRANSFERASE,ALT 23 U/L (12-36); ALBUMIN 2.8 g/dL (3.5-5.2); ALKALINE PHOSPHATASE 64 IU/L (56-112); ASPARTATE AMNIOTRANSFERASE,AST 34 IU/L (5-25); BILIRUBIN TOTAL 0.5 mg/dL (0.1-1.3); BLOOD UREA NITROGEN,BUN 16 mg/dL (7-18); BUN/CREATININE RATIO 17.8 (9-20); CALCIUM 10.4 mg/dL (8.6-10.2); CHLORIDE,CL 98 mmol/L (100-110); CREATININE 0.9 mg/dL (0.55-1.02); ESTIMATED GFR 76 mL/min (>60); GLUCOSE RANDOM 123 mg/dL (80-116); POTASSIUM,K 4.2 mmol/L (3.5-5.3); PROTEIN TOTAL,TP 6.3 g/dL (6.0-8.0); SODIUM,NA 134 mmol/L (135-145)
[2023-09-20 10:33] LABS: CARBON DIOXIDE,CO2 31 mmol/L (21-32)
[2023-09-20 11:17] LABS: INFLUENZA A NAA NEGATIVE (NEGATIVE); INFLUENZA B NAA NEGATIVE (NEGATIVE)
[2023-09-20 11:18] LABS: CORONAVIRUS COVID-19 NAA NEGATIVE (NEGATIVE)
[2023-09-20 12:33] VITALS: BP 111/62; PULSE 81
== END 2023-09-20 12:20 | disposition home or self-care (01) ==
LOC: FB.ED 09:53
DX: A08.4 Viral intestinal infection, unspecified (principal); E87.1 Hypo-osmolality and hyponatremia; Z88.8 Allergy status to other drugs, medicaments and biological substances
CPT/HCPCS: 0240U; 80053; 85025; 96361; 96374; 99284; A9270; J2405; J3490; J7030

== ENCOUNTER 2023-09-29 13:03 | Emergency (ER) | payer MEDICARE, MEDICAID ==
[2023-09-29 13:47] LABS: HEMOGLOBIN 13.2 g/dL (11.4-15.5); MEAN CORPUSCULAR HEMOGLOBIN 34.4 pg (23.9-33.9); MEAN CORPUSCULAR HGB CONC 33.8 g/dL (31.9-34.8); MEAN CORPUSCULAR VOLUME 101.7 fL (76.7-100.5); MEAN PLATELET VOLUME 8.6 fL (7.1-12.4); PLATELET COUNT,PLT 289 x10(3)uL (151-488); RED BLOOD CELL COUNT 3.84 x10(6)uL (3.60-5.20); RED CELL DISTRIBUTION WIDTH 14.1 % (12.3-16.5); WHITE BLOOD CELL COUNT,WBC 8.3 x10-3/uL (3.0-10.3)
[2023-09-29 13:58] LABS: A/G RATIO 0.8; ALANINE AMINOTRANSFERASE,ALT 106 U/L (12-36); ALBUMIN 3.2 g/dL (3.5-5.2); ALKALINE PHOSPHATASE 89 IU/L (56-112); ASPARTATE AMNIOTRANSFERASE,AST 67 IU/L (5-25); BILIRUBIN TOTAL 0.5 mg/dL (0.1-1.3); BLOOD UREA NITROGEN,BUN 16 mg/dL (7-18); BUN/CREATININE RATIO 14.5 (9-20); CARBON DIOXIDE,CO2 32 mmol/L (21-32); CHLORIDE,CL 96 mmol/L (100-110); CREATININE 1.1 mg/dL (0.55-1.02); EST CRCL DRUG DOSING (CG) 52.61 mL/min; ESTIMATED GFR 60 mL/min (>60); GLUCOSE RANDOM 118 mg/dL (80-116); POTASSIUM,K 4.1 mmol/L (3.5-5.3); PROTEIN TOTAL,TP 7.2 g/dL (6.0-8.0); SODIUM,NA 134 mmol/L (135-145)
[2023-09-29 14:00] LABS: CALCIUM 14.9 mg/dL (8.6-10.2)
[2023-09-29 14:06] LABS: LYMPHOCYTES PERCENT MAN 19 % (13-37); MONOCYTES PERCENT MAN 18 % (4-12); SEG NEUTROPHILS PERCENT MAN 63 % (46-82)
[2023-09-29] MEDS: Sodium Chloride 0.9% 1,000 ML IV ONE (14:20)
[2023-09-29 17:20] VITALS: BP 133/84; PULSE 86
[2023-10-02 00:41] LABS: PARATHYROID HORMONE,INTACT 9 pg/mL (15-65)
== END 2023-09-29 16:05 | disposition home or self-care (01) ==
LOC: FB.ED 13:03
DX: R79.89 Other specified abnormal findings of blood chemistry (principal); E83.52 Hypercalcemia; K71.10 Toxic liver disease with hepatic necrosis, without coma; Z88.8 Allergy status to other drugs, medicaments and biological substances; Z79.899 Other long term (current) drug therapy
CPT/HCPCS: 36415; 80053; 83735; 83970; 85025; 86140; 93005; 96360; 99283; J7030; 93010; 99284

== ENCOUNTER 2024-01-27 17:02 | Emergency (ER) | payer MEDICARE, MEDICAID ==
[2024-01-27] MEDS ORDERED: Sodium Chloride 0.9% 10 ML Syringe FLUSH PRN (17:44)
[2024-01-27 18:29] LABS: HEMATOCRIT 33.6 % (34.2-48.2); HEMOGLOBIN 10.7 g/dL (11.4-15.5); MEAN CORPUSCULAR HEMOGLOBIN 29.3 pg (23.9-33.9); MEAN CORPUSCULAR VOLUME 91.7 fL (76.7-100.5); PLATELET COUNT,PLT 277 x10(3)uL (151-488); RED BLOOD CELL COUNT 3.66 x10(6)uL (3.60-5.20); RED CELL DISTRIBUTION WIDTH 14.6 % (12.3-16.5); WHITE BLOOD CELL COUNT,WBC 9.5 x10-3/uL (3.0-10.3)
[2024-01-27 18:35] LABS: BLOOD UREA NITROGEN,BUN 26 mg/dL (7-18); BUN/CREATININE RATIO 32.5 (9-20); CALCIUM 9.1 mg/dL (8.6-10.2); CARBON DIOXIDE,CO2 28 mmol/L (21-32); CHLORIDE,CL 104 mmol/L (100-110); CREATININE 0.8 mg/dL (0.55-1.02); EST CRCL DRUG DOSING (CG) 69.42 mL/min; ESTIMATED GFR 88 mL/min (>60); GLUCOSE RANDOM 103 mg/dL (80-116); POTASSIUM,K 4.3 mmol/L (3.5-5.3); SODIUM,NA 140 mmol/L (135-145)
[2024-01-27 18:41] LABS: A/G RATIO 0.5; ALANINE AMINOTRANSFERASE,ALT 13 U/L (12-36); ALBUMIN 2.5 g/dL (3.5-5.2); ALKALINE PHOSPHATASE 78 IU/L (56-112); ASPARTATE AMNIOTRANSFERASE,AST 14 IU/L (5-25); BILIRUBIN TOTAL 0.3 mg/dL (0.1-1.3); PROTEIN TOTAL,TP 7.2 g/dL (6.0-8.0)
[2024-01-27] MEDS: FOSPHENYTOIN IV ONE (18:44)
[2024-01-27] MEDS: [UNRECOGNIZED DRUG - OTHER] IV ONE (18:44)
[2024-01-27] MEDS: SODIUM CHLORIDE IV ONE (18:44)
[2024-01-27 18:55] LABS: BILIRUBIN,URINE NEGATIVE (NEGATIVE); GLUCOSE,URINE NORMAL (NORMAL); KETONES,URINE NEGATIVE (NEGATIVE); LEUKOCYTE ESTERASE,URINE SMALL (NEGATIVE); NITRITE,URINE NEGATIVE (NEGATIVE); OCCULT BLOOD,URINE NEGATIVE (NEGATIVE); PROTEIN,URINE NEGATIVE (NEGATIVE); UROBILINOGEN,URINE NORMAL (NEGATIVE)
[2024-01-27 18:57] LABS: COLOR,URINE YELLOW (YELLOW)
[2024-01-27 19:02] LABS: APPEARANCE,URINE CLEAR (CLEAR); BACTERIA,URINE FEW (NS); RBC,URINE 0-5 (0-5); SQUAMOUS EPITHELIAL CELLS,UR OCCASIONAL (NS,R,O)
[2024-01-27 19:08] LABS: BASOPHILS PERCENT MAN 1 % (0-2); LYMPHOCYTES PERCENT MAN 21 % (13-37); MONOCYTES PERCENT MAN 8 % (4-12); SEG NEUTROPHILS PERCENT MAN 70 % (46-82)
[2024-01-27 21:15] VITALS: BP 129/76; PULSE 72
[2024-01-29 14:57] LABS: VALPROIC ACID 59 ug/mL (50-100)
[2024-01-29 22:06] LABS: KEPPRA (LEVETIRACETAM) 29 ug/mL (10-40)
== END 2024-01-27 19:30 | disposition home or self-care (01) ==
LOC: FB.ED 17:02
DX: G40.909 Epilepsy, unspecified, not intractable, without status epilepticus (principal); I10 Essential (primary) hypertension; Z86.73 Personal history of transient ischemic attack (TIA), and cerebral infarction without residual deficits; Z79.899 Other long term (current) drug therapy; Z88.8 Allergy status to other drugs, medicaments and biological substances; Z88.1 Allergy status to other antibiotic agents
CPT/HCPCS: 36415; 80053; 80164; 80177; 81001; 85025; 87086; 87088; 87186; 96365; 99284; J3490; Q2009

== ENCOUNTER 2024-05-10 16:02 | Emergency (ER) | payer MEDICARE, MEDICAID ==
[2024-05-10] MEDS ORDERED: Sulfamethoxazole/Trimethoprim 200-40 MG/5 ML Susp ML (473 ML Bottle) PO ONE (16:03)
[2024-05-10 16:23] LABS: BILIRUBIN,URINE NEGATIVE (NEGATIVE); GLUCOSE,URINE NORMAL (NORMAL); KETONES,URINE NEGATIVE (NEGATIVE); LEUKOCYTE ESTERASE,URINE LARGE (NEGATIVE); NITRITE,URINE NEGATIVE (NEGATIVE); OCCULT BLOOD,URINE MODERATE (NEGATIVE); PROTEIN,URINE NEGATIVE (NEGATIVE); UROBILINOGEN,URINE NORMAL (NEGATIVE)
[2024-05-10 16:25] LABS: APPEARANCE,URINE TURBID (CLEAR); BACTERIA,URINE MANY (NS); COLOR,URINE YELLOW (YELLOW); SQUAMOUS EPITHELIAL CELLS,UR FEW (NS,R,O); WBC,URINE >100 (0-5)
[2024-05-10 17:15] LABS: BASOPHILS PERCENT AUTO 0.5 % (0.2-1.5); HEMATOCRIT 35.3 % (34.2-48.2); HEMOGLOBIN 11.6 g/dL (11.4-15.5); LYMPHOCYTES ABSOLUTE AUTO 2.7 x10-3/uL (1.0-4.4); LYMPHOCYTES PERCENT AUTO 33.2 % (18.4-52.1); MEAN CORPUSCULAR HEMOGLOBIN 30.5 pg (23.9-33.9); MEAN CORPUSCULAR HGB CONC 32.9 g/dL (31.9-34.8); MEAN CORPUSCULAR VOLUME 92.8 fL (76.7-100.5); MEAN PLATELET VOLUME 7.6 fL (7.1-12.4); MONOCYTES ABSOLUTE AUTO 0.7 x10-3/uL (0.3-1.0); NEUTROPHILS ABSOLUTE AUTO 4.7 x10-3/uL (1.5-6.3); NEUTROPHILS PERCENT AUTO 57.3 % (30.8-76.2); PLATELET COUNT,PLT 282 x10(3)uL (151-488); RED CELL DISTRIBUTION WIDTH 14.5 % (12.3-16.5); WHITE BLOOD CELL COUNT,WBC 8.2 x10-3/uL (3.0-10.3)
[2024-05-10 17:18] LABS: BLOOD UREA NITROGEN,BUN 22 mg/dL (7-18); BUN/CREATININE RATIO 31.4 (9-20); CALCIUM 9.2 mg/dL (8.6-10.2); CARBON DIOXIDE,CO2 31 mmol/L (21-32); CHLORIDE,CL 99 mmol/L (100-110); CREATININE 0.7 mg/dL (0.55-1.02); ESTIMATED GFR 102 mL/min (>60); GLUCOSE RANDOM 92 mg/dL (80-116); POTASSIUM,K 4.3 mmol/L (3.5-5.3); SODIUM,NA 138 mmol/L (135-145)
[2024-05-10 17:59] LABS: ALANINE AMINOTRANSFERASE,ALT 11 U/L (12-36); ALKALINE PHOSPHATASE 79 IU/L (56-112); ASPARTATE AMNIOTRANSFERASE,AST 12 IU/L (5-25)
[2024-05-10 19:26] VITALS: BP 129/75; PULSE 71
[2024-05-12 20:09] LABS: IRON BINDING CAPACITY TOTAL 240 ug/dL (240-450); IRON,SERUM OR PLASMA 16 ug/dL (28-170); TRANSFERRIN SATURATION 7 %sat (20-50)
== END 2024-05-10 18:20 ==
LOC: FB.ED 16:02
DX: N39.0 Urinary tract infection, site not specified (principal); I10 Essential (primary) hypertension; Z79.52 Long term (current) use of systemic steroids; Z79.899 Other long term (current) drug therapy; Z79.1 Long term (current) use of non-steroidal anti-inflammatories (NSAID); Z79.51 Long term (current) use of inhaled steroids; Z88.8 Allergy status to other drugs, medicaments and biological substances; Z88.1 Allergy status to other antibiotic agents
CPT/HCPCS: 36415; 80048; 81001; 83540; 83550; 84075; 84450; 84460; 85025; 86140; 87086; 87088; 99284; A9270; 87186

== ENCOUNTER 2025-04-15 17:10 | Emergency (ER) | payer MEDICARE, MEDICAID ==
[2025-04-15 17:57] LABS: BASOPHILS ABSOLUTE AUTO 0.1 x10-3/uL (0.0-0.1); BASOPHILS PERCENT AUTO 0.8 % (0.2-1.5); EOSINOPHILS ABSOLUTE AUTO 0.0 x10-3/uL (0.0-0.8); EOSINOPHILS PERCENT AUTO 0.1 % (0.6-8.1); LYMPHOCYTES ABSOLUTE AUTO 2.4 x10-3/uL (1.0-4.4); LYMPHOCYTES PERCENT AUTO 23.7 % (18.4-52.1); MEAN PLATELET VOLUME 8.0 fL (7.1-12.4); MONOCYTES ABSOLUTE AUTO 1.0 x10-3/uL (0.3-1.0); MONOCYTES PERCENT AUTO 9.9 % (4.4-15.7); NEUTROPHILS ABSOLUTE AUTO 6.8 x10-3/uL (1.5-6.3); NEUTROPHILS PERCENT AUTO 65.5 % (30.8-76.2); PLATELET COUNT,PLT 235 x10(3)uL (151-488); RED BLOOD CELL COUNT 4.22 x10(6)uL (3.60-5.20); RED CELL DISTRIBUTION WIDTH 14.3 % (12.3-16.5); WHITE BLOOD CELL COUNT,WBC 10.3 x10-3/uL (3.0-10.3)
[2025-04-15 18:02] LABS: BLOOD UREA NITROGEN,BUN 27 mg/dL (7-18); CARBON DIOXIDE,CO2 29 mmol/L (21-32); CHLORIDE,CL 104 mmol/L (100-110); CREATININE 1.0 mg/dL (0.55-1.02); ESTIMATED GFR 66 mL/min (>60); GLUCOSE RANDOM 116 mg/dL (80-116); POTASSIUM,K 4.7 mmol/L (3.5-5.3); SODIUM,NA 139 mmol/L (135-145)
[2025-04-15 18:08] LABS: A/G RATIO 0.8; ALANINE AMINOTRANSFERASE,ALT 12 U/L (12-36); ASPARTATE AMNIOTRANSFERASE,AST 12 IU/L (5-25); BILIRUBIN TOTAL 0.3 mg/dL (0.1-1.3); CREATINE KINASE,CK 33 IU/L (60-160); PROTEIN TOTAL,TP 7.3 g/dL (6.0-8.0)
[2025-04-15 18:11] LABS: LACTIC ACID 1.3 mmol/L (0.4-2.0)
[2025-04-15 18:39] VITALS: BP 165/93; PULSE 93
[2025-04-18 14:14] LABS: LAMOTRIGINE 18.1 ug/mL (3.0-15.0)
== END 2025-04-15 18:37 ==
LOC: FB.ED 17:10
DX: G40.409 Other generalized epilepsy and epileptic syndromes, not intractable, without status epilepticus (principal); I10 Essential (primary) hypertension; Z86.73 Personal history of transient ischemic attack (TIA), and cerebral infarction without residual deficits; Z88.8 Allergy status to other drugs, medicaments and biological substances; Z79.899 Other long term (current) drug therapy
CPT/HCPCS: 36415; 80053; 80175; 82550; 83605; 85025; 86140; 99284